=== PATIENT | male | born 1955 | race Caucasian/White ===

== ENCOUNTER 2017-09-07 20:51 | Inpatient (IN) | payer OTHER ==
[~2017-09-07] VITALS: Ht 177.8 cm; Wt 75.1 kg
--- NOTE | ~2017-09-07 | HC ---
[facility] [address] [place] [address] CONSULTATION Name: TY OWENS Room #: 448-P ADM IN M.R.#: [id number] Admission: 09/07/17 Attend Phys: Javi Mendez MD Discharge: Date of : 53 Report #: [id number] THIS REPORT FOR: //name// CC: Javi Mendez [facility] physician/PCP DATE OF SERVICE: 09/09/[address] Arnold, [facility], room 4481. HISTORY OF PRESENT ILLNESS: A 61-year-old white male admitted with hyperglycemia, dehydration, etc. The patient is an extremely poor historian. He states he has suffered from hypertension and approximately 20-year history of diabetes. He has been on some sort of oral medication for both illnesses, but has not taken any medication in the past several months. He has not been on any specific diet. He has not followed up with his physicians. He does not monitor blood sugar. He began to experience polyuria, polydipsia, mental confusion, etc. and was admitted with hyperglycemia. Otherwise, he is unable to give any prior pertinent past or family medical history whatsoever. He does not remember any of the names or doses, etc. of any of his prior medications. CURRENT MEDICATIONS: At the time of consultation include enoxaparin, amlodipine, ondansetron, insulin through various routes, flu vaccine, IV hydration and possibly other medication. PHYSICAL EXAMINATION: GENERAL: Well-nourished, well-developed 61-year-old white male, in no acute distress. Height and weight are as per chart. VITAL SIGNS: The patient is afebrile, heart rate 86 and regular, blood pressure 143/78. SKIN: Warm and moist with slightly decreased turgor. PERRL. NECK: Supple. CHEST: Clear. HEART: Regular rhythm without murmurs, rubs or gallops. ABDOMEN: Benign. EXTREMITIES: Show no edema, cyanosis or clubbing. Peripheral pulses 2+ and equal bilaterally. NEUROLOGIC: Grossly intact. The patient is alert and oriented. He is just unable to give any useful medical history. ASSESSMENT: 1. Diabetes mellitus, out of control. 2. 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 3. Chronic poor compliance. PLAN: [facility] [address] [place] [address] CONSULTATION Name: TY OWENS Room #: 448-P ADM IN M.R.#: [id number] Admission: 09/07/17 Attend Phys: Javi Mendez MD Discharge: Date of : 53 Report #: [id number] 1. Will evaluate prior control of hemoglobin A1c and fructosamine. 2. Continue vigorous hydration and utilize insulin to control sugar. Will also check C-peptide to see whether the patient is making endogenous insulin and would benefit from oral therapy. 3. Will place the patient on appropriate dietary restriction and educate in diet and whatever diabetes modalities are possible. The patient will also need full outpatient diet and diabetes education post-dismissal. 4. I have attempted to give the patient initial instruction in diabetes and the need for improved compliance in all areas to avoid preventable complications and maximize patient's safety. It is not clear whether the patient understands the implications of this education and these instructions. Thank you very much for this consultation. I will continue to attempt to educate and regulate patient's diabetes. <ELECTRONICALLY SIGNED> By: Doyle To MD 09/10/17 1125 1258 22 Doyle To MD /nt
[2017-09-07 20:52] VITALS: BP 145/81
[2017-09-07 21:06] LABS: ABSOLUTE NEUTROPHILS 11.1 thou/uL (1.4-8.2); BASOPHILS 0.4 % (0.0-2.0); EOSINOPHILS 0.3 % (0.0-3.0); HEMATOCRIT 37.4 % (42.0-52.0); HEMOGLOBIN 12.7 gm/dL (14.0-18.0); LYMPHOCYTES 10.2 % (24.0-44.0); MCHC 33.9 g/dL (28.0-37.0); MCV 88.3 fL (80.0-100.0); MONOCYTES 5.1 % (1.0-8.0); PLATELET COUNT 387 thou/uL (150-400); RBC 4.23 mil/uL (4.50-6.00); RDW 12.4 % (10.5-14.5); WBC 13.3 thou/uL (4.0-11.0)
[2017-09-07 21:19] LABS: CALCIUM 9.7 mg/dL (8.5-10.1); CREATININE 1.5 mg/dL (0.7-1.3); POTASSIUM 4.5 mmol/L (3.5-5.1)
[2017-09-07 21:21] LABS: ALBUMIN 3.2 g/dL (3.4-5.0); TOTAL BILIRUBIN 0.5 mg/dL (<0.1-1.0); TOTAL PROTEIN 8.3 g/dL (6.4-8.2)
[2017-09-07 21:23] LABS: URINE BILIRUBIN NEGATIVE (Negative); URINE BLOOD 1+ (Negative); URINE CLARITY CLEAR; URINE COLOR YELLOW; URINE GLUCOSE-RANDOM* 3+ (Negative); URINE KETONES 1+ (Negative); URINE LEUKOCYTES NEGATIVE (Negative); URINE NITRITE NEGATIVE (Negative); URINE PROTEIN (DIPSTICK) NEGATIVE (Negative); URINE UROBILINOGEN 0.2 E.U./dl (0.2-1.0)
[2017-09-07 21:27] LABS: BE(vivo) 5.8 mmol/L (-2 to +3); HCO3 31.3 mmol/L (22.0-26.0); PCO2 VENOUS 49.2 mmHg (41.0-51.0); PO2 VENOUS 26.7 mmHg (35.0-45.0)
[2017-09-07 21:31] LABS: BACTERIA >30 Many /HPF (None Seen); CASTS None Seen /LPF (None Seen); CRYSTALS None Seen /LPF (None Seen); MUCUS 4-6 Moderate strn/LPF (None Seen); SQUAMOUS 0-3 Few /LPF (0-3); URINE RBC 3-10 Few /HPF (0-2); WBC CLUMPS Moderate (None Seen)
[2017-09-07 21:49] VITALS: BP 145/81
[2017-09-07 21:59] VITALS: BP 175/96
[2017-09-07 22:19] VITALS: BP 179/106
[2017-09-08 00:10] VITALS: BP 136/87
[2017-09-08 04:30] VITALS: BP 110/59
[2017-09-08 05:35] LABS: HEMATOCRIT 33.2 % (42.0-52.0); HEMOGLOBIN 11.4 gm/dL (14.0-18.0); MCH 30.1 pg (26.0-34.0); MCHC 34.4 g/dL (28.0-37.0); MCV 87.5 fL (80.0-100.0); RBC 3.79 mil/uL (4.50-6.00); RDW 12.6 % (10.5-14.5); WBC 15.2 thou/uL (4.0-11.0)
[2017-09-08 05:58] LABS: ANION GAP 12 mmol/L (7-16); BUN 37 mg/dL (7-18); CALCIUM 8.6 mg/dL (8.5-10.1); CHLORIDE 99 mmol/L (98-107); CHOLESTEROL 54 mg/dL (<200); CO2 27 mmol/L (21-32); CREATININE 0.9 mg/dL (0.7-1.3); GLUCOSE 150 mg/dL (74-106); HDL CHOLESTEROL 15 mg/dL (>40); LDL CHOLESTEROL 14 mg/dL (<100); POTASSIUM 3.7 mmol/L (3.5-5.1); SODIUM 138 mmol/L (136-145); TC:HDL 3.6 Ratio (Not establshd); TRIGLYCERIDE 128 mg/dL (<150); VLDL 26 mg/dL (<40)
[2017-09-08 07:36] VITALS: BP 141/72
[2017-09-08 16:15] VITALS: BP 112/62
[2017-09-08 18:06] LABS: GLYCOHEMOGLOBIN (HGB A1C) 11.4 % (4.8-5.6)
[2017-09-08 19:37] VITALS: BP 139/85
[2017-09-09 00:50] VITALS: BP 126/64
[2017-09-09 06:25] LABS: CALCIUM 8.3 mg/dL (8.5-10.1); CREATININE 0.8 mg/dL (0.7-1.3); POTASSIUM 3.8 mmol/L (3.5-5.1)
[2017-09-09 06:29] VITALS: BP 137/73
[2017-09-09 06:35] LABS: ABSOLUTE NEUTROPHILS 9.6 thou/uL (1.4-8.2); BASOPHILS 0.6 % (0.0-2.0); EOSINOPHILS 0.7 % (0.0-3.0); HEMATOCRIT 32.6 % (42.0-52.0); HEMOGLOBIN 11.3 gm/dL (14.0-18.0); LYMPHOCYTES 11.8 % (24.0-44.0); MCH 30.2 pg (26.0-34.0); MCHC 34.5 g/dL (28.0-37.0); MCV 87.6 fL (80.0-100.0); MONOCYTES 7.2 % (1.0-8.0); PLATELET COUNT 308 thou/uL (150-400); POLYS 79.7 % (36.0-66.0); RBC 3.72 mil/uL (4.50-6.00); RDW 12.5 % (10.5-14.5)
[2017-09-09 08:09] VITALS: BP 143/78
[2017-09-09 16:33] VITALS: BP 128/66
[2017-09-09 17:08] LABS: GLYCOHEMOGLOBIN (HGB A1C) 11.7 % (4.8-5.6)
[2017-09-09 20:06] VITALS: BP 143/76
[2017-09-10 04:00] VITALS: BP 143/78
[2017-09-10 08:00] VITALS: BP 155/94
[2017-09-10 16:00] VITALS: BP 116/68
[2017-09-10 18:50] VITALS: BP 141/80
[2017-09-11 05:15] VITALS: BP 147/91
[2017-09-11 08:47] VITALS: BP 114/82
[2017-09-11 16:00] VITALS: BP 122/74
[2017-09-11 19:36] VITALS: BP 111/63
[2017-09-12 05:34] VITALS: BP 134/77
[2017-09-12 08:00] VITALS: BP 137/61
[2017-09-12] MEDS ORDERED: CIPRO500 MG PO (14:03)
[2017-09-12] MEDS ORDERED: AMLODIPINE BESY10 MG PO (14:03)
[2017-09-12] MEDS ORDERED: ACCUPRIL40 MG PO (14:04)
[2017-09-12] MEDS ORDERED: GLUCOPHAGE1000 MG PO (14:06)
[2017-09-12] MEDS ORDERED: AMARYL4 MG PO (14:13)
[2017-09-12] MEDS ORDERED: TOUJEO SOL300 UNIT/1 SUBQ (14:16)
[2017-09-12] MEDS ORDERED: 1ST TIER UNILE1 EAC1 SUBQ (14:16)
[2017-09-12 14:18] VITALS: BP 134/77
== END 2017-09-12 17:45 | disposition home or self-care (01) | DRG 638 ==
LOC: ER 20:51 → 4S 21:41 → EROBS 21:41 → 4S 22:03 → ENTRNSPT 09-12 17:11 → 4S 09-12 17:45
PROVIDERS: Hospitalist; Nurse Practitioner Family; Physician Assistant
DX: E11.00 Type 2 diabetes mellitus with hyperosmolarity without nonketotic hyperglycemic-hyperosmolar coma (NKHHC) (principal); N17.9 Acute kidney failure, unspecified; E11.65 Type 2 diabetes mellitus with hyperglycemia; I10 Essential (primary) hypertension; E78.5 Hyperlipidemia, unspecified; E11.40 Type 2 diabetes mellitus with diabetic neuropathy, unspecified; E66.09 Other obesity due to excess calories; E86.0 Dehydration; Z91.14 Patient's other noncompliance with medication regimen; Z90.49 Acquired absence of other specified parts of digestive tract; Z68.23 Body mass index [BMI] 23.0-23.9, adult
CPT/HCPCS: 10195

== ENCOUNTER 2017-11-22 08:55 | Inpatient (IN) | payer OTHER ==
[2017-11-22] VITALS (23 sets, daily range): BP systolic 52–164; BP diastolic 40–85
[~2017-11-22] VITALS: Ht 175.3 cm; Wt 85.3 kg
--- NOTE | ~2017-11-22 | EKG ---
[address] [place] [address] ELECTROCARDIOGRAM REPORT Name: TY OWENS Room #: 241-P ADM IN M.R.#: [id number] Admission: 11/22/17 Attend Phys: Javi Mendez MD Discharge: Date of : 53 Report #: [id number] THIS REPORT FOR: //name// [facility] ED Test Date: 2017-11-22 Test Time: 09:18:28 Pat Name: TY OWENS Department: Room: Gender: M Medical Psychotherapist: : 1955 Requested By: Raoul Mo Order Number: [id number] MD: Erick Amaya Measurements Intervals [place] Rate: 107 P: 16 CT: 170 QRS: -48 QRSD: 118 T: 27 QT: 336 QTc: 449 Interpretive Statements Sinus tachycardia Left anterior fascicular block Probable anteroseptal infarct No previous ECG available for comparison Electronically Signed On 11-23-2017 8:38:39 CDT by Erick Amaya [email or web address] <ELECTRONICALLY SIGNED> By: Erick Amaya MD, [facility] 11/23/17 0838 7 7 Erick Amaya MD, FACC /EPI
--- NOTE | ~2017-11-22 | HC ---
[facility] [address] [place] [address] CONSULTATION Name: TY OWENS Room #: 204-P ADM IN M.R.#: [id number] Admission: 11/22/17 Attend Phys: Javi Mendez MD Discharge: Date of : 53 Report #: [id number] THIS REPORT FOR: //name// CC: Javi CUENCA DATE OF SERVICE: 11/23/2017 NEPHROLOGY CONSULTATION ATTENDING PHYSICIAN: Dr. Mendez. REASON FOR CONSULTATION: Acute kidney injury. HISTORY OF PRESENT ILLNESS: This 62-year-old patient with no contacts is seen comatose on the ventilator post-code in the ICU. Information is limited, mostly taken from the electronic medical record, nursing staff and the physician consulting and attending staff. The patient has known diabetes, was admitted at this hospital with hyperglycemia and volume depletion 3 months ago. At that time, noted to have a limited resource and decreased ability to get his hypoglycemic medications. At this time, he presented yesterday initially with weakness, fatigue and loss of energy, then dry heaves, was felt to be volume depleted, had lactic acidosis, hyperglycemia, some metabolic acidosis and a serum creatinine of 2.7. Initially treated on the floor. Eventually found to have gram-negative sepsis, underwent a cardiorespiratory arrest, reportedly associated with ventricular tachycardia and was resuscitated, intubated and placed on pressors, ICU overnight. Now the pressors have been weaned, but the patient is still comatose and sedated. PAST MEDICAL HISTORY: He has got a history of hypertension, diabetes, peripheral neuropathy and cataracts. SOCIAL HISTORY: Apparently, he never has smoked. REVIEW OF SYSTEMS: Cannot be taken. According to his initial evaluation, he was having chills, weakness, fever and poor appetite at the time of admission, only symptoms reported. PHYSICAL EXAMINATION: GENERAL: This is a middle-aged gentleman, again comatose, somewhat arousable at times, on the ventilator in the ICU and off pressors. SKIN: Warm and dry. SKELETAL: Shows him to be well developed, well nourished and non-obese. HEENT: Extraocular movements cannot be tested. Pupils are reactive. No scleral icterus. Hearing and vision cannot be tested. Endotracheal tube in place. [facility] [address] [place] [address] CONSULTATION Name: YT OWENS Room #: 204-P ADM IN M.R.#: [id number] Admission: 11/22/17 Attend Phys: Javi Mendez MD Discharge: Date of : 53 Report #: [id number] NECK: Supple. CHEST: Shows coarse breath sounds with rhonchi and occasional wheeze. HEART: Regular. ABDOMEN: Soft and nontender. Bowel sounds diminished. EXTREMITIES: Show no peripheral edema. The feet are warm and he moves all extremities. LABORATORY DATA: Hemoglobin is 9.6, white count is 14.8. He initially had 11%, bands, 1 metamyelocyte and platelets of 83,000. Sodium 136, potassium 3.8, chloride 103, bicarbonate 22, BUN 58 and creatinine 2.5. ASSESSMENT AND PLAN: 1. Acute kidney injury. Creatinine up, volume depletion, gram-negative sepsis, likely urinary tract source. Intra-abdominal source is being investigated. CT of the abdomen is ordered. Supportive therapy at the current time. Antibiotics per ID. IV fluids to continue support. Creatinine has improved down to 2.5 and he is making some urine. We will follow closely. 2. Gram-negative sepsis with septic syndrome. 3. Status post cardiorespiratory arrest. 4. Diabetes mellitus with poor control and peripheral neuropathy. <ELECTRONICALLY SIGNED> By: Kaleb Mosley MD 12/05/17 1055 0905 1203 Kaleb Mosley MD /nt
--- NOTE | ~2017-11-22 | HC ---
[facility] [address] [place] [address] CONSULTATION Name: TY OWENS Room #: 241-P ADM IN M.R.#: [id number] Admission: 11/22/17 Attend Phys: Javi Mendez MD Discharge: Date of : 53 Report #: [id number] THIS REPORT FOR: //name// CC: Ector Enamorado DATE OF SERVICE: 11/23/2017 GASTROENTEROLOGY CONSULTATION Patient of Dr. Mendez and Dr. Summer Enamorado. INDICATION FOR CONSULTATION: The patient apparently developed a cardiac arrhythmia and code blue through the night, was coded and transferred down to the Intensive Care Unit. He was found to have Gram-negative sepsis with Gram-negative rods growing in his blood. Apparently, during the course of all of the events through the night, an NG tube was inserted, some bright red blood was seen coming per NG tube, but this morning, it is a light brown color such as coffee grounds perhaps and it clears rapidly with one flush of 50 mL through the NG tube. His hemoglobin is stable at this point and I do not think that active GI bleeding is a major concern right now. PAST MEDICAL HISTORY: Significant for diabetes mellitus, hypertension, hyperlipidemia. He had a recent viral illness and was admitted to the hospital for increasing weakness and fatigue and poor appetite. He has had an elevated D-dimer with a negative VQ scan and venous Dopplers of the lower extremities, acute renal insufficiency with a creatinine of 3 this admission. He is also noted to have an elevated AST, which is probably from shock liver. Currently, he is sedated and on the vent and unresponsive to verbal or physical stimuli. PAST SURGICAL HISTORY: Per chart is significant for an appendectomy and surgery on his right hand. ALLERGIES: No known drug allergies. MEDICATIONS: Prior to admission include amlodipine, glimepiride, metformin. SOCIAL HISTORY: The patient does not smoke. He did drink alcohol in the past. FAMILY HISTORY: Not obtainable. REVIEW OF SYSTEMS: Not obtainable. [facility] [address] [place] [address] CONSULTATION Name: TY OWENS Room #: 241-P ADM IN M.R.#: [id number] Admission: 11/22/17 Attend Phys: Javi Mendez MD Discharge: Date of : 53 Report #: [id number] PHYSICAL EXAMINATION: GENERAL: Reveals a well-developed, well-nourished 62-year-old white male who is sedated on the ventilator, in the ICU at this time and underwent code blue situation through the middle of the night with intermittent V-tach. HEENT: He appears normocephalic and atraumatic and anicteric. He is intubated on the vent and he has an OG tube in. HEART: Rate and rhythm are regular, appears to be in sinus rhythm at this time on the monitor. LUNGS: Clear on the left. On the right, he has some coarse anterior and lateral breath sounds. ABDOMEN: Mildly distended. Bowel sounds are present, but decreased. There is no palpable organomegaly or mass. There is no tenderness, rebound or guarding. EXTREMITIES: Warm and dry with no peripheral cyanosis or clubbing. There is 2+ pitting edema of the lower extremities and feet. SIGNIFICANT LABORATORY DATA: Showed procalcitonin of 77, AST is in the 90s. Troponin 0.08. Hemoglobin 9.8, platelets are 83,000. I do not have an occult of stool yet. White count was 20,000. Urinalysis had positive leukocyte esterase, but negative nitrites. The patient is currently in the CT scanner being scanned. On plain films of the abdomen, he had moderate stool throughout the colon. There are several calcified stones over the line of right kidney, but not in the ureters. There was increased density in the medial right base suggestive of moderate atelectasis. Blood cultures are positive x 2 for Gram-negative rods. Urine culture is pending. Creatinine was up to 3 through the night and it is down to 2.5 this morning. Lactate is 3.5 at this time, it was as high as 12.7 at around 11:00 last night during the code. IMPRESSION: 1. Febrile illness with Gram-negative sepsis, currently off pressors. The source of the Gram-negative sepsis is not clear. The patient's procalcitonin level is 77. 2. Status post code blue through the night during which he was found to be in and out of V-tach. This morning, he is in normal sinus rhythm. Troponin is 0.08. 3. Diabetes mellitus. 4. Hypertension. 5. Hyperlipidemia. 6. Recent viral illness. 7. Elevated D-dimer with negative VQ scan and negative venous Dopplers of the lower extremities. 8. Normocytic normochromic anemia, coffee ground emesis and some bright red blood per NG last night. Hemoglobin is 9.6. 9. Acute renal insufficiency, creatinine was up to 3 through the night, now down to 2.5. 10. Acute respiratory failure. The patient is sedated and on vent with an FiO2 [facility] [address] [place] [address] CONSULTATION Name: TY OWENS Room #: 241-P ADM IN M.R.#: [id number] Admission: 11/22/17 Attend Phys: Javi Mendez MD Discharge: Date of : 53 Report #: [id number] of 50%, 5 of PEEP. He is tachypneic. He is sedated. 11. Metabolic acidosis with elevated lactate level. The source of his Gram-negative sepsis is not clear, but is most likely the etiology of his acidosis. There are no acute abdominal findings on exam. 12. Thrombocytopenia. Platelets 83,000. 13. Elevated AST, likely secondary to shock liver as his pressure was low through the night during the code. My recommendations are as follows: I have irrigated the NG tube clear with one syringe of water flush. There is some brownish material in the NG tube, but no red blood is seen and there is very small output. I agree with a CT scan of the abdomen and pelvis today and I would consider an EGD and colonoscopy at some point if he has not had a colonoscopy done recently. Physical exam was fairly unremarkable except for some coarse breath sounds over the right anterior and lateral lung. I would recommend continuing the Protonix drip for now. We will monitor his H and H closely. I agree with the current vancomycin and Zosyn regimen. Blood sugars are coming under control. I would recommend neurology consult if the patient is not responsive when the sedation is removed. Thank you very much once again for allowing me to participate in his care. <ELECTRONICALLY SIGNED> By: April Samano DO 11/23/17 2039 1026 1833 April Samano DO /nt
--- NOTE | ~2017-11-22 | EKG ---
[address] [address] ELECTROCARDIOGRAM REPORT Name: TY OWENS Room #: 241-P ADM IN M.R.#: [id number] Admission: 11/22/17 Attend Phys: Javi Mendez MD Discharge: Date of : 53 Report #: [id number] THIS REPORT FOR: //name// [facility] Test Date: 2017-11-23 Test Time: 06:57:54 Pat Name: TY OWENS Department: Room: 241 P Gender: M Utilization Review Nurse: OMERO : 1955 Requested By: China Landon Order Number: [id number] MD: Erick Amaya Measurements Intervals [place] Rate: 103 P: 17 NM: 156 QRS: -48 QRSD: 108 T: 29 QT: 331 QTc: 434 Interpretive Statements Sinus tachycardia Left anterior fascicular block Anteroseptal infarct No previous ECG available for comparison Electronically Signed On 11-23-2017 8:55:17 CDT by Erick Amaya [email or web address] <ELECTRONICALLY SIGNED> By: Erick Amaya MD, [facility] 11/23/17 0855 0657 06 Erick Amaya MD, FACC /EPI
--- NOTE | ~2017-11-22 | 2DMMODE ---
[facility] [address] [place] [address] 2 D/M-MODE ECHOCARDIOGRAM Name: TY OWENS Room #: 241-P ADM IN M.R.#: [id number] Admission: 11/22/17 Attend Phys: Javi Mendez MD Discharge: Date of : 53 Date of Service: 11/23/17 1000 Report #: [id number] THIS REPORT FOR: //name// APPROVED REPORT Study performed: 11/23/2017 08:36:10 EXAM: Comprehensive 2D, Doppler, and color-flow Echocardiogram Patient Location: ICU Room #: 241 Status: routine BSA: 1.98 HR: 102 bpm BP: 112/67 mmHg Other Information Study Quality: Adequate Indications Diabetes Hypertension/HDD S^P Code Blue, Respiratory failure 2D Dimensions RVDd: 40.74 mm LVEF(%): 75.31 (>50%) IVSd: 14.31 (7-11mm) LVOT Diam: 22.19 (18-24mm) LVDd: 43.86 mm PWd: 14.31 (7-11mm) Ascending Ao: 29.67 (22-36mm) LVDs: 24.62 (25-40mm) Aortic Root: 35.25 mm IVC: 25.00 mm Miranda's LVEF: 75.31 % Volumes Left Atrial Volume (Systole) Single Plane 4CH: 79.39 mL Single Plane 2CH: 72.31 mL LA ESV Index: 42.00 mL/m2 Aortic Valve AoV Peak Jesus.: 1.59 m/s AO Peak Gr.: 10.07 mmHg LVOT Max P.60 mmHg LVOT Max V: 1.18 m/s KATHE Vmax: 2.88 cm2 Mitral Valve E/A Ratio: 1.1 [facility] [place] [address] 2 D/M-MODE ECHOCARDIOGRAM Name: ROMANTY Room #: 241-P [facility] IN .R.#: [id number] Admission: 11/22/17 Attend Phys: Javi Mendez MD Discharge: Date of : 53 Date of Service: 11/23/17 1000 Report #: [id number] MV Decel. Time: 170.08 ms MV E Max Jesus.: 1.04 m/s MV A Jesus.: 0.93 m/s MV PHT: 49.32 ms IVRT: 69.20 ms Pulmonary Valve PV Peak Jesus.: 0.95 m/s PV Peak Gr.: 3.63 mmHg Pulmonary Vein P Vein S: 0.57 m/s P Vein A: 0.21 m/s P Vein D: 0.36 m/s P Vein A Dur.: 110.7 msec P Vein S/D Ratio: 1.58 Tricuspid Valve TR Peak Jesus.: 2.53 m/s TR Peak Gr.: 25.57 mmHg PA Pressure: 40.00 mmHg Left Ventricle The left ventricle is normal size. Mild to moderate concentric left ventricular hypertrophy. Left ventricular systolic function is hyperdynamic. LVEF is 65-70%. The diastolic function is abnormal. Right Ventricle The right ventricle is normal size. The right ventricular systolic function is normal. Atria Left atrium is dilated. Right atrium is dilated. Aortic Valve Aortic valve is calcified, trileaflet. No aortic regurgitation is present. There is no aortic valvular stenosis. Mitral Valve The mitral valve is normal in structure. Trace mitral regurgitation. No evidence of mitral valve stenosis. Tricuspid Valve The tricuspid valve is normal in structure. There is trace tricuspid regurgitation. Estimated PAP 40 mmHg. There is mild-moderate pulmonary hypertension. Pulmonic Valve [address] [address] 2 D/M-MODE ECHOCARDIOGRAM Name: TY OWENS Room #: 241-P [facility] IN M.R.#: [id number] Admission: 11/22/17 Attend Phys: Javi Mendez MD Discharge: Date of : 53 Date of Service: 11/23/17 [facility] Report #: [id number] The pulmonary valve is normal in structure. Trace pulmonic regurgitation. Great Vessels The aortic root is normal in size. The inferior vena cava is dilated with no inspiratory collapse. Pericardium There is no pericardial effusion. <Conclusion> Left ventricular systolic function is hyperdynamic. Mild to moderate concentric left ventricular hypertrophy. LVEF is 65-70%. Both atria are dilated. Aortic valve is calcified, trileaflet. No aortic regurgitation or stenosis The mitral valve is normal in structure. Trace mitral regurgitation. There is trace tricuspid regurgitation. Estimated pulmonary artery pressure of 40 mmHg. There is no pericardial effusion. <ELECTRONICALLY SIGNED> By: Erick Amaya MD, FACC 11/23/17 1000 1000 1000 Erick Amaya MD, FACC /INF
--- NOTE | ~2017-11-22 | EKG ---
[address] [address] ELECTROCARDIOGRAM REPORT Name: TY OWENS Room #: 204-P ADM IN M.R.#: [id number] Admission: 11/22/17 Attend Phys: Javi Mendez MD Discharge: Date of : 53 Report #: [id number] THIS REPORT FOR: //name// [facility] Test Date: 2017-12-02 Test Time: 14:43:06 Pat Name: TY OWENS Department: Room: 246 P Gender: M Cat And Dog Bather: Rose Mary COMBS : 1955 Requested By: Javi Mendez Order Number: [id number] MD: Erick Amaya Measurements Intervals [place] Rate: 91 P: 5 TN: 149 QRS: -33 QRSD: 109 T: 37 QT: 367 QTc: 452 Interpretive Statements Sinus rhythm Left axis deviation Poor R wave progression Compared to ECG 11/23/2017 06:57:54 No significant change was found Electronically Signed On 12-05-2017 7:46:48 CDT by Erick Amaya [email or web address] <ELECTRONICALLY SIGNED> By: Erick Amaya MD, [facility] 12/05/17 0746 144 144 Erick Amaya MD, [facility] /EPI
--- NOTE | ~2017-11-22 | HC ---
[facility] [address] [place] [address] CONSULTATION Name: TY OWENS Room #: 241-P ADM IN M.R.#: [id number] Admission: 11/22/17 Attend Phys: Javi Mendez MD Discharge: Date of : 53 Report #: [id number] THIS REPORT FOR: //name// CC: Javi CUENCA CARDIOLOGY CONSULTATION HISTORY OF PRESENT ILLNESS: The patient is a 62-year-old male who apparently, from review of the records here, is status post code blue tonight. He was on Med/Surg tele upstairs and apparently, there was some hypotension and at least, I do not have documentation of what the rhythm was. CPR was initiated. There was some witness of nonsustained VT or tachycardia in the 200-250 range. He spontaneously converted this. He was not defibrillated. Medications and some CPR were performed. He was admitted allegedly with sepsis, hypotension and dehydration. It looks like he has had multiple admissions for diabetic ketoacidosis. His lactate level is 8. I do not have much in the way of any cardiac history in the old records, but certainly risk factors in light of the poorly controlled diabetes, [id number] renal failure and acidosis. Current pH is 7.0 with a lactate level of 8. There is a bandemia. H and H are 11.1 and 31.9, 83% segs and 11% bands. Creatinine 2.7, potassium 4.6. Troponin 0.04. Currently, sinus tachycardia with Levophed for pressor support. PAST MEDICAL HISTORY: History of diabetes, recurrent DKA, acidosis, sepsis, dehydration and urinary tract infections, perhaps a component of noncompliance. HOME MEDICATIONS: Amlodipine 10, metformin 500 b.i.d., glimepiride 2, Cipro, quinapril 40, insulin and lancets. SOCIAL HISTORY: Never smoker. History of alcohol. Apparently, he does see a primary care physician. He lives alone. FAMILY HISTORY: Unknown. REVIEW OF SYSTEMS: Not obtainable. PHYSICAL EXAMINATION: GENERAL: He is not responsive. He is intubated. He is on propofol and Levophed drip. VITAL SIGNS: Pulse 130s, blood pressure 140/80s. HEENT: Eyes reveal no xanthelasmas. Pharynx, slightly dry mucous membranes. NECK: Shows preserved upstrokes. No evidence of significant JVD. LUNGS: Clear anteriorly. CARDIAC EXAMINATION: Tachycardic, S1, S2. ABDOMEN: Slightly protuberant. Bowel sounds are noted. EXTREMITIES: Reveal trace nonpitting edema. NEUROLOGIC: Not obtainable. He is sedated and intubated. [address] [address] CONSULTATION Name: TY OWENS Room #: 241-P [facility] IN M.R.#: [id number] Admission: 11/22/17 Attend Phys: Javi Mendez MD Discharge: Date of : 53 Report #: [id number] SKIN: Appears to be warm and dry. Does have some geronimo facial complexion. No skin ulcers. ASSESSMENT: 1. Status post code blue with CPR. 2. Apparent wide complex tachycardia, possible ventricular tachycardia, currently in sinus tachycardia. 3. Sepsis with lactate and resultant lactic acidosis. 4. Diabetes type 1, poorly controlled. 5. Acute renal failure with relative hypovolemia. 6. Thrombocytopenia. RECOMMENDATIONS AND PLAN: The patient currently on some pressor support, monitored and intubated on the sepsis. Infectious Disease has been consulted. Antibiotics. It does not appear this was a primary cardiac event, did not induce by electrolyte abnormality, although certainly acidosis and lactic acidosis appears to be evident here. So other considerations of lactate elevation and possible ischemic other metabolic etiologies A.m. lab. Continue pressor support. We will obtain echo Doppler and EKG in the morning and troponin in the morning, although it does not appear that this is coronary ischemic issue. We will follow with Thank you for allowing us to assist in the care of this patient. <ELECTRONICALLY SIGNED> By: Kaleb Herrera MD, FACC 11/25/17 0932 2203 0254 Kaleb Herrera MD, FACC /nt
--- NOTE | ~2017-11-22 | EKG ---
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 hernandez : 1955 Requested By: Kaleb Herrera Order Number: [id number] MD: Erick Amaya Measurements Intervals [place] Rate: 93 P: 5 OK: 149 QRS: -32 QRSD: 108 T: 19 QT: 392 QTc: 488 Interpretive Statements Sinus rhythm Occasional premature ventricular complexes Left axis deviation Compared to ECG 11/23/2017 06:57:54 premature ventricular complexes are now present Electronically Signed On 12-05-2017 7:50:16 CDT by Erick Amaya [email or web address] <ELECTRONICALLY SIGNED> By: Erick Amaya MD, [facility] 12/05/17 0750 0550 0550 Erick Amaya MD, [facility] /EPI
--- NOTE | ~2017-11-22 | HC ---
[facility] [address] [place] [address] CONSULTATION Name: TY OWENS Room #: 241-P ADM IN M.R.#: [id number] Admission: 11/22/17 Attend Phys: Javi Mendez MD Discharge: Date of : 53 Report #: [id number] THIS REPORT FOR: //name// CC: Javi CUENCA REASON FOR CONSULTATION: I was asked to evaluate concerning septic shock. HISTORY OF PRESENT ILLNESS: The patient was a 62-year-old, hospitalized here in August for Enterobacter urinary tract infection. He has underlying hypertension, diabetes. He returns now with generalized weakness over the last 2 days. Has had some upper respiratory tract congestion and nonproductive cough. He has had some nausea and emesis, but mostly dry heaves. He has been off his diabetic treatment for several days. He was seen in the Emergency Room where he complained of mild right lower quadrant pain. He had evidence of pyuria and bacteriuria. Lactate was elevated at 7.5, creatinine was up to 2.7. White count of 20,000 with left shift. Blood and urine cultures were obtained. Chest x-ray: Cardiomegaly without failure and abdominal x-ray showed nonobstructive right renal calculus. He did have some atelectasis in the right lung base. He was hyperglycemic and had some ketones in his urine. He was given IV fluids, started on ceftriaxone and admitted for suspected urinary tract infection. When he got to the med/surg floor, had a cardiopulmonary arrest, now is intubated. NG tube was placed and now has had some transient bloody return. He has had no diarrhea. Moderate tracheal secretions. No gross aspiration identified. ALLERGIES: None known. MEDICATIONS: As noted on his MAR including vancomycin and Zosyn started last evening. PAST MEDICAL HISTORY: Diabetes, hypertension, hyperlipidemia, peripheral neuropathy, cataracts, right hand surgery, appendectomy. FAMILY HISTORY: Noncontributory. SOCIAL HISTORY: Nonsmoker, no significant alcohol intake. REVIEW OF SYSTEMS: Noted no previous cardiac issues or chest pain. No dysuria. No rash or decubitus. No seizure reports. PHYSICAL EXAMINATION: VITAL SIGNS: Temperature is 101.8 axillary. Blood pressure now is stable, off vasopressors. He did drop down in the 50s last evening. He is on FiO2 of 50%. GENERAL: He is sedated. SKIN: Unremarkable. 1+ peripheral edema in lower extremities. HEENT: Unremarkable. OG with brownish red output. Endotracheal tube in place. [facility] [address] [place] [address] CONSULTATION Name: TY OWENS Room #: 241-P [facility] IN M.R.#: [id number] Admission: 11/22/17 Attend Phys: Javi Mendez MD Discharge: Date of : 53 Report #: [id number] NECK: Supple. LUNGS: Coarse posteriorly. HEART: Regular, without murmur. ABDOMEN: Mild distention, no focal tenderness or mass appreciated. No hepatosplenomegaly identified. GENITOURINARY: External genitalia unremarkable with indwelling Borrego catheter. LABORATORY STUDIES: Sodium 136, potassium 3.8. Bicarbonate 22, on a bicarbonate drip, last evening his bicarbonate was 13. Creatinine 2.5, with a baseline of 0.8. AST 94, lipase 45, bilirubin 0.4, alkaline phosphatase 95, ALT 60, albumin at 2.6. Lactic acid peaked at 12.7 post-code, now 3.5. Troponin 0.08. Hemoglobin 9.6, down from 11.3 last month. White count 14.8, platelet count 83,000, 93% segs and 4% bands. TSH 4. Procalcitonin 77. Urinalysis, moderate wbc's, moderate bacteria. ABGs on 100% FiO2 showed a pO2 of 371, pCO2 of 27, pH 7.5, lactate 3.2, bicarbonate of 20. Blood cultures, gram-negative bacilli from both cultures obtained yesterday morning. Urine culture is pending. Sputum culture is pending. Previous culture from 09/08 shows Enterobacter from the urine, which was sensitive to Zosyn. Chest x-ray today shows vascular congestion and pulmonary edema, increased right pleural effusion and atelectasis. IMPRESSION: A 62-year-old diabetic with multisystem failure post-code, respiratory failure, acute renal failure with possible gastrointestinal bleed, suspect upper tract with underlying Gram-negative bacteremia, suspecting urinary tract versus intestinal tract. His liver function tests are reasonable. Makes biliary tract less likely. RECOMMENDATIONS: We will continue combination of aerobic and anaerobic gram-negative coverage. Image his abdomen and pelvis. I have discussed with Nursing Services as well as GI Service. Further recommendations pending imaging studies and identification of the infecting organisms. Control blood glucose, continue hydration and vasopressors as needed to control shock. <ELECTRONICALLY SIGNED> By: Terrence Eason MD 11/23/17 1403 0846 1101 Terrence Eason MD /nt
--- NOTE | ~2017-11-22 | EKG ---
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
[~2017-11-22 08:55] MED LIST: 1ST TIER UNILE1 EAC1 SUBQ; ACCUPRIL40 MG PO; AMARYL4 MG PO; AMLODIPINE BESY10 MG PO; CIPRO500 MG PO; GLUCOPHAGE1000 MG PO; TOUJEO SOL300 UNIT/1 SUBQ
[2017-11-22 10:06] LABS: HEMATOCRIT 31.9 % (42.0-52.0); HEMOGLOBIN 11.1 gm/dL (14.0-18.0); MCH 30.7 pg (26.0-34.0); MCHC 34.7 g/dL (28.0-37.0); MCV 88.5 fL (80.0-100.0); PLATELET COUNT 107 thou/uL (150-400); RDW 13.1 % (10.5-14.5)
[2017-11-22 10:14] LABS: ANION GAP 17 mmol/L (7-16); BUN 57 mg/dL (7-18); CALCIUM 10.8 mg/dL (8.5-10.1); CHLORIDE 95 mmol/L (98-107); CO2 19 mmol/L (21-32); CREATININE 2.7 mg/dL (0.7-1.3); GLUCOSE 355 mg/dL (74-106); POTASSIUM 4.6 mmol/L (3.5-5.1); SODIUM 131 mmol/L (136-145)
[2017-11-22 10:23] LABS: ALBUMIN 3.3 g/dL (3.4-5.0); LIPASE 41 U/L (73-393); SGOT 39 U/L (15-37); SGPT 32 U/L (30-65); TOTAL BILIRUBIN 0.7 mg/dL (<0.1-1.0); TOTAL PROTEIN 7.7 g/dL (6.4-8.2); TROPONIN-I < 0.04 ng/mL (<0.06)
[2017-11-22 10:24] LABS: ABSOLUTE NEUTROPHILS 18.8 thou/uL (1.4-8.2)
[2017-11-22 10:25] LABS: ANISOCYTOSIS SLIGHT
[2017-11-22 10:37] LABS: URINE BILIRUBIN NEGATIVE (Negative); URINE BLOOD 2+ (Negative); URINE CLARITY CLOUDY; URINE COLOR YELLOW; URINE GLUCOSE-RANDOM* 2+ (Negative); URINE KETONES TRACE (Negative); URINE LEUKOCYTES-REFLEX 1+ (Negative); URINE NITRITE-REFLEX NEGATIVE (Negative); URINE PROTEIN (DIPSTICK) 2+ (Negative); URINE SPECIFIC GRAVITY 1.025 (1.005-1.035); URINE UROBILINOGEN 0.2 E.U./dl (0.2-1.0)
[2017-11-22 10:43] LABS: BE(vivo) -5.3 mmol/L (-2 to +3); HCO3 19.1 mmol/L (22.0-26.0); PCO2 VENOUS 33.6 mmHg (41.0-51.0); PO2 VENOUS 46.8 mmHg (35.0-45.0)
[2017-11-22 10:48] LABS: FINE GRANULAR CASTS 0-3 Few /LPF (None Seen); SQUAMOUS None Seen /LPF (0-3)
[2017-11-22 10:49] LABS: CRYSTALS None Seen /LPF (None Seen); MUCUS 4-6 Moderate strn/LPF (None Seen)
[2017-11-22 10:50] LABS: URINE RBC 3-10 Few /HPF (0-2)
[2017-11-22 13:05] LABS: TSH 4.022 uIU/mL (0.358-3.740)
[2017-11-22 21:09] LABS: HEMATOCRIT 27.4 % (42.0-52.0); MCH 30.5 pg (26.0-34.0); MCHC 32.5 g/dL (28.0-37.0); RBC 2.92 mil/uL (4.50-6.00); RDW 13.7 % (10.5-14.5); WBC 15.1 thou/uL (4.0-11.0)
[2017-11-22 21:12] LABS: HCO3 14.1 mmol/L (22.0-26.0); PCO2 41.4 mmHg (35.0-45.0); PO2 272.6 mmHg (80.0-100.0); sO2 99.4 % (92.0-98.0)
[2017-11-22 21:17] LABS: HEMOGLOBIN 8.9 gm/dL (14.0-18.0); MCV 93.7 fL (80.0-100.0)
[2017-11-22 21:21] LABS: BE(vivo) -19.2 mmol/L (-2 to +3); HCO3 10.9 mmol/L (22.0-26.0); PCO2 43.8 mmHg (35.0-45.0); PO2 89.2 mmHg (80.0-100.0); pH 7.015 (7.360-7.450); sO2 91.7 % (92.0-98.0)
[2017-11-22 21:24] LABS: APTT 40.1 Seconds (24.5-32.8); INR 1.3; PROTIME 13.2 Seconds (9.3-11.4)
[2017-11-22 21:29] LABS: FIBRINOGEN 701.2 mg/dL (210-360)
[2017-11-22 21:31] LABS: ALBUMIN 2.6 g/dL (3.4-5.0); ANION GAP 21 mmol/L (7-16); BUN 59 mg/dL (7-18); CHLORIDE 101 mmol/L (98-107); CO2 13 mmol/L (21-32); GLUCOSE 276 mg/dL (74-106); SGOT 94 U/L (15-37); SGPT 60 U/L (30-65); SODIUM 135 mmol/L (136-145); TOTAL BILIRUBIN 0.4 mg/dL (<0.1-1.0); TOTAL PROTEIN 6.5 g/dL (6.4-8.2); TROPONIN-I < 0.04 ng/mL (<0.06)
[2017-11-22 21:32] LABS: CALCIUM 8.7 mg/dL (8.5-10.1); POTASSIUM 3.6 mmol/L (3.5-5.1)
[2017-11-22 21:47] LABS: ABSOLUTE NEUTROPHILS 12.7 thou/uL (1.4-8.2); ANISOCYTOSIS SLIGHT; METAMYELOCYTES 1 %; PLATELET COUNT 86 thou/uL (150-400)
[2017-11-22 22:12] LABS: AMYLASE 25 U/L (25-115); LIPASE 45 U/L (73-393)
[2017-11-22 22:32] LABS: BE(vivo) -11.3 mmol/L (-2 to +3); HCO3 13.7 mmol/L (22.0-26.0); PCO2 27.9 mmHg (35.0-45.0); PO2 145.1 mmHg (80.0-100.0); pH 7.308 (7.360-7.450); sO2 98.7 % (92.0-98.0)
[2017-11-23] VITALS (80 sets, daily range): BP systolic 70–128; BP diastolic 50–80
[2017-11-23 01:11] LABS: GLYCOHEMOGLOBIN (HGB A1C) 7.7 % (4.8-5.6)
[2017-11-23 01:40] LABS: HEMATOCRIT 27.1 % (42.0-52.0); HEMOGLOBIN 9.3 gm/dL (14.0-18.0); MCH 30.4 pg (26.0-34.0)
[2017-11-23 01:42] LABS: MCHC 34.2 g/dL (28.0-37.0); MCV 88.8 fL (80.0-100.0); RBC 3.05 mil/uL (4.50-6.00); RDW 13.2 % (10.5-14.5); WBC 14.8 thou/uL (4.0-11.0)
[2017-11-23 01:50] LABS: CALCIUM 8.3 mg/dL (8.5-10.1); CREATININE 2.7 mg/dL (0.7-1.3); POTASSIUM 4.1 mmol/L (3.5-5.1)
[2017-11-23 04:54] LABS: HEMATOCRIT 27.5 % (42.0-52.0); HEMOGLOBIN 9.6 gm/dL (14.0-18.0); MCH 30.7 pg (26.0-34.0); MCHC 34.9 g/dL (28.0-37.0); MCV 88.2 fL (80.0-100.0); PLATELET COUNT 83 thou/uL (150-400); RBC 3.12 mil/uL (4.50-6.00); RDW 13.1 % (10.5-14.5); WBC 14.8 thou/uL (4.0-11.0)
[2017-11-23 05:11] LABS: CALCIUM 8.5 mg/dL (8.5-10.1); CREATININE 2.5 mg/dL (0.7-1.3); POTASSIUM 3.8 mmol/L (3.5-5.1); TROPONIN-I 0.08 ng/mL (<0.06)
[2017-11-23 05:19] LABS: BE(vivo) -1.2 mmol/L (-2 to +3); HCO3 20.9 mmol/L (22.0-26.0); PO2 371.7 mmHg (80.0-100.0); pH 7.506 (7.360-7.450); sO2 99.8 % (92.0-98.0)
[2017-11-23 05:54] LABS: ABSOLUTE NEUTROPHILS 14.4 thou/uL (1.4-8.2)
[2017-11-23 17:22] LABS: BE(vivo) -0.7 mmol/L (-2 to +3); HCO3 24.3 mmol/L (22.0-26.0); PCO2 41.2 mmHg (35.0-45.0); PO2 83.2 mmHg (80.0-100.0); pH 7.388 (7.360-7.450); sO2 96.1 % (92.0-98.0)
[2017-11-24] VITALS (53 sets, daily range): BP systolic 80–111; BP diastolic 52–71
[2017-11-24 01:04] LABS: ABSOLUTE NEUTROPHILS 11.6 thou/uL (1.4-8.2); BASOPHILS 0.2 % (0.0-2.0); EOSINOPHILS 0.3 % (0.0-3.0); HEMOGLOBIN 8.5 gm/dL (14.0-18.0); LYMPHOCYTES 3.5 % (24.0-44.0); MCH 30.8 pg (26.0-34.0); MCHC 35.2 g/dL (28.0-37.0); MCV 87.5 fL (80.0-100.0); MONOCYTES 5.5 % (1.0-8.0); POLYS 90.5 % (36.0-66.0); RBC 2.74 mil/uL (4.50-6.00); RDW 13.3 % (10.5-14.5); WBC 12.8 thou/uL (4.0-11.0)
[2017-11-24 01:06] LABS: PLATELET COUNT 57 thou/uL (150-400)
[2017-11-24 01:20] LABS: ALBUMIN 1.9 g/dL (3.4-5.0); CALCIUM 8.1 mg/dL (8.5-10.1); CREATININE 3.3 mg/dL (0.7-1.3); MAGNESIUM 2.1 mg/dL (1.8-2.4); PHOSPHORUS 1.7 mg/dL (2.5-4.9); POTASSIUM 3.5 mmol/L (3.5-5.1); TOTAL BILIRUBIN 1.6 mg/dL (<0.1-1.0); TOTAL PROTEIN 5.7 g/dL (6.4-8.2)
[2017-11-25] VITALS (38 sets, daily range): BP systolic 97–130; BP diastolic 57–103
[2017-11-25 04:57] LABS: ABSOLUTE NEUTROPHILS 7.8 thou/uL (1.4-8.2); BASOPHILS 0.4 % (0.0-2.0); EOSINOPHILS 0.8 % (0.0-3.0); HEMATOCRIT 24.2 % (42.0-52.0); HEMOGLOBIN 8.6 gm/dL (14.0-18.0); MCH 30.9 pg (26.0-34.0); MCHC 35.4 g/dL (28.0-37.0); MCV 87.5 fL (80.0-100.0); PLATELET COUNT 69 thou/uL (150-400); POLYS 84.8 % (36.0-66.0); RBC 2.76 mil/uL (4.50-6.00); RDW 13.9 % (10.5-14.5); WBC 9.2 thou/uL (4.0-11.0)
[2017-11-25 05:04] LABS: ALBUMIN 1.7 g/dL (3.4-5.0); CALCIUM 7.4 mg/dL (8.5-10.1); CREATININE 4.3 mg/dL (0.7-1.3); PHOSPHORUS 3.1 mg/dL (2.5-4.9); POTASSIUM 3.6 mmol/L (3.5-5.1)
[2017-11-25 05:38] LABS: BE(vivo) 1.5 mmol/L (-2 to +3); HCO3 24.6 mmol/L (22.0-26.0); PCO2 32.6 mmHg (35.0-45.0); PO2 64.2 mmHg (80.0-100.0); pH 7.495 (7.360-7.450); sO2 94.3 % (92.0-98.0)
[2017-11-25 11:55] LABS: BE(vivo) 1.7 mmol/L (-2 to +3); HCO3 25.1 mmol/L (22.0-26.0); PCO2 34.5 mmHg (35.0-45.0); PO2 79.5 mmHg (80.0-100.0); pH 7.479 (7.360-7.450); sO2 96.6 % (92.0-98.0)
[2017-11-26] VITALS (25 sets, daily range): BP systolic 122–149; BP diastolic 61–81
[2017-11-26 03:58] LABS: ABSOLUTE NEUTROPHILS 6.5 thou/uL (1.4-8.2); BASOPHILS 0.5 % (0.0-2.0); EOSINOPHILS 1.8 % (0.0-3.0); HEMATOCRIT 24.6 % (42.0-52.0); HEMOGLOBIN 8.6 gm/dL (14.0-18.0); MCH 30.6 pg (26.0-34.0); MCHC 34.9 g/dL (28.0-37.0); MCV 87.6 fL (80.0-100.0); MONOCYTES 6.8 % (1.0-8.0); PLATELET COUNT 90 thou/uL (150-400); POLYS 84.9 % (36.0-66.0); RBC 2.81 mil/uL (4.50-6.00); RDW 13.8 % (10.5-14.5); WBC 7.7 thou/uL (4.0-11.0)
[2017-11-26 04:19] LABS: ALBUMIN 1.7 g/dL (3.4-5.0); CALCIUM 7.8 mg/dL (8.5-10.1); CREATININE 4.6 mg/dL (0.7-1.3); PHOSPHORUS 3.7 mg/dL (2.5-4.9); POTASSIUM 3.5 mmol/L (3.5-5.1)
[2017-11-26 05:16] LABS: BE(vivo) 2.5 mmol/L (-2 to +3); HCO3 25.9 mmol/L (22.0-26.0); PCO2 35.2 mmHg (35.0-45.0); PO2 83.9 mmHg (80.0-100.0); pH 7.484 (7.360-7.450)
[2017-11-26 09:03] LABS: BE(vivo) 3.7 mmol/L (-2 to +3); HCO3 27.1 mmol/L (22.0-26.0); PCO2 36.4 mmHg (35.0-45.0); PO2 79.9 mmHg (80.0-100.0); sO2 96.6 % (92.0-98.0)
[2017-11-27] VITALS (24 sets, daily range): BP systolic 106–158; BP diastolic 66–93
[2017-11-27 04:33] LABS: CALCIUM 7.9 mg/dL (8.5-10.1); CREATININE 4.4 mg/dL (0.7-1.3); POTASSIUM 3.3 mmol/L (3.5-5.1)
[2017-11-27 04:37] LABS: ALBUMIN 1.7 g/dL (3.4-5.0); CALCIUM 7.5 mg/dL (8.5-10.1); CREATININE 4.3 mg/dL (0.7-1.3); PHOSPHORUS 4.5 mg/dL (2.5-4.9); POTASSIUM 3.4 mmol/L (3.5-5.1)
[2017-11-27 08:22] LABS: HEMATOCRIT 27.3 % (42.0-52.0); HEMOGLOBIN 9.5 gm/dL (14.0-18.0); MCH 30.6 pg (26.0-34.0); MCHC 34.6 g/dL (28.0-37.0); MCV 88.4 fL (80.0-100.0); RBC 3.09 mil/uL (4.50-6.00); WBC 7.7 thou/uL (4.0-11.0)
[2017-11-27 12:05] LABS: BE(vivo) 3.8 mmol/L (-2 to +3); HCO3 27.3 mmol/L (22.0-26.0); PCO2 37.2 mmHg (35.0-45.0); PO2 71.5 mmHg (80.0-100.0); pH 7.484 (7.360-7.450); sO2 95.5 % (92.0-98.0)
[2017-11-28] VITALS (26 sets, daily range): BP systolic 139–169; BP diastolic 70–84
[2017-11-28 05:57] LABS: HEMOGLOBIN 9.3 gm/dL (14.0-18.0); MCH 30.2 pg (26.0-34.0); MCHC 34.2 g/dL (28.0-37.0); MCV 88.2 fL (80.0-100.0); RBC 3.07 mil/uL (4.50-6.00); RDW 14.2 % (10.5-14.5); WBC 9.1 thou/uL (4.0-11.0)
[2017-11-28 06:02] LABS: ALBUMIN 1.8 g/dL (3.4-5.0); CALCIUM 7.9 mg/dL (8.5-10.1); CREATININE 3.8 mg/dL (0.7-1.3); PHOSPHORUS 4.2 mg/dL (2.5-4.9); POTASSIUM 3.6 mmol/L (3.5-5.1)
[2017-11-29] VITALS (19 sets, daily range): BP systolic 136–175; BP diastolic 71–112
[2017-11-29 05:16] LABS: HEMATOCRIT 26.8 % (42.0-52.0); HEMOGLOBIN 9.2 gm/dL (14.0-18.0); MCH 30.3 pg (26.0-34.0); MCHC 34.3 g/dL (28.0-37.0); MCV 88.3 fL (80.0-100.0); PLATELET COUNT 164 thou/uL (150-400); RBC 3.03 mil/uL (4.50-6.00); RDW 14.3 % (10.5-14.5); WBC 10.2 thou/uL (4.0-11.0)
[2017-11-29 05:26] LABS: ALBUMIN 1.9 g/dL (3.4-5.0); CALCIUM 8.2 mg/dL (8.5-10.1); CREATININE 3.5 mg/dL (0.7-1.3); PHOSPHORUS 4.4 mg/dL (2.5-4.9); POTASSIUM 3.6 mmol/L (3.5-5.1)
[2017-11-29 05:32] LABS: ABSOLUTE NEUTROPHILS 8.8 thou/uL (1.4-8.2)
[2017-11-29 08:35] LABS: PROTIME 10.2 Seconds (9.3-11.4)
[2017-11-30 03:50] VITALS: BP 147/67
[2017-11-30 05:25] LABS: ALBUMIN 1.8 g/dL (3.4-5.0); CALCIUM 8.1 mg/dL (8.5-10.1); CREATININE 3.1 mg/dL (0.7-1.3); PHOSPHORUS 4.4 mg/dL (2.5-4.9); POTASSIUM 3.6 mmol/L (3.5-5.1)
[2017-11-30 07:15] VITALS: BP 136/47
[2017-11-30 11:15] VITALS: BP 136/81
[2017-11-30 15:10] VITALS: BP 144/75
[2017-11-30 19:25] VITALS: BP 121/65
[2017-12-01 03:13] VITALS: BP 135/66
[2017-12-01 06:12] LABS: ALBUMIN 1.8 g/dL (3.4-5.0); CALCIUM 7.9 mg/dL (8.5-10.1); CREATININE 2.8 mg/dL (0.7-1.3); PHOSPHORUS 3.9 mg/dL (2.5-4.9); POTASSIUM 3.3 mmol/L (3.5-5.1)
[2017-12-01 07:12] VITALS: BP 144/81
[2017-12-01 16:50] VITALS: BP 177/97
[2017-12-01 20:45] VITALS: BP 134/67
[2017-12-02] VITALS (13 sets, daily range): BP systolic 125–164; BP diastolic 71–89
[2017-12-02 06:10] LABS: ABSOLUTE NEUTROPHILS 6.3 thou/uL (1.4-8.2); BASOPHILS 0.4 % (0.0-2.0); EOSINOPHILS 1.8 % (0.0-3.0); HEMATOCRIT 24.2 % (42.0-52.0); HEMOGLOBIN 8.3 gm/dL (14.0-18.0); LYMPHOCYTES 13.1 % (24.0-44.0); MCH 30.9 pg (26.0-34.0); MCHC 34.5 g/dL (28.0-37.0); MCV 89.7 fL (80.0-100.0); MONOCYTES 7.1 % (1.0-8.0); PLATELET COUNT 197 thou/uL (150-400); POLYS 77.6 % (36.0-66.0); RBC 2.69 mil/uL (4.50-6.00); RDW 13.6 % (10.5-14.5); WBC 8.1 thou/uL (4.0-11.0)
[2017-12-02 06:23] LABS: ALBUMIN 1.9 g/dL (3.4-5.0); CALCIUM 7.9 mg/dL (8.5-10.1); CREATININE 2.4 mg/dL (0.7-1.3); PHOSPHORUS 3.7 mg/dL (2.5-4.9); POTASSIUM 3.3 mmol/L (3.5-5.1)
[2017-12-02 11:55] LABS: BE(vivo) 3.8 mmol/L (-2 to +3); HCO3 26.7 mmol/L (22.0-26.0); PCO2 33.7 mmHg (35.0-45.0); pH 7.516 (7.360-7.450); sO2 85.3 % (92.0-98.0)
[2017-12-02 11:57] LABS: PO2 44.3 mmHg (80.0-100.0)
[2017-12-02 12:30] LABS: ABSOLUTE NEUTROPHILS 7.2 thou/uL (1.4-8.2); BASOPHILS 0.3 % (0.0-2.0); EOSINOPHILS 1.4 % (0.0-3.0); HEMATOCRIT 25.4 % (42.0-52.0); HEMOGLOBIN 8.7 gm/dL (14.0-18.0); LYMPHOCYTES 8.1 % (24.0-44.0); MCH 30.9 pg (26.0-34.0); MCHC 34.3 g/dL (28.0-37.0); PLATELET COUNT 227 thou/uL (150-400); POLYS 83.2 % (36.0-66.0); RBC 2.82 mil/uL (4.50-6.00); RDW 13.9 % (10.5-14.5); WBC 8.6 thou/uL (4.0-11.0)
[2017-12-03] VITALS (19 sets, daily range): BP systolic 130–166; BP diastolic 68–88
[2017-12-03 04:23] LABS: BASOPHILS 0.8 % (0.0-2.0); EOSINOPHILS 1.4 % (0.0-3.0); HEMATOCRIT 25.4 % (42.0-52.0); HEMOGLOBIN 8.8 gm/dL (14.0-18.0); LYMPHOCYTES 9.8 % (24.0-44.0); MCH 30.8 pg (26.0-34.0); MCHC 34.8 g/dL (28.0-37.0); MCV 88.4 fL (80.0-100.0); MONOCYTES 6.8 % (1.0-8.0); PLATELET COUNT 230 thou/uL (150-400); POLYS 81.2 % (36.0-66.0); RBC 2.87 mil/uL (4.50-6.00); RDW 13.5 % (10.5-14.5); WBC 8.6 thou/uL (4.0-11.0)
[2017-12-03 04:38] LABS: ANION GAP 9 mmol/L (7-16); BUN 42 mg/dL (7-18); CALCIUM 8.2 mg/dL (8.5-10.1); CHLORIDE 105 mmol/L (98-107); CO2 27 mmol/L (21-32); CREATININE 2.5 mg/dL (0.7-1.3); GLUCOSE 226 mg/dL (74-106); PHOSPHORUS 3.8 mg/dL (2.5-4.9); POTASSIUM 3.8 mmol/L (3.5-5.1); SGOT 21 U/L (15-37); SGPT 23 U/L (30-65); SODIUM 141 mmol/L (136-145); TOTAL PROTEIN 6.6 g/dL (6.4-8.2); TROPONIN-I < 0.04 ng/mL (<0.06)
[2017-12-03 05:28] LABS: BE(vivo) 2.3 mmol/L (-2 to +3); HCO3 25.2 mmol/L (22.0-26.0); PCO2 32.7 mmHg (35.0-45.0); PO2 77.2 mmHg (80.0-100.0); pH 7.505 (7.360-7.450); sO2 96.5 % (92.0-98.0)
[2017-12-04 00:03] VITALS: BP 128/74
[2017-12-04 03:55] VITALS: BP 148/73
[2017-12-04 04:02] LABS: ALBUMIN 2.1 g/dL (3.4-5.0); CALCIUM 8.4 mg/dL (8.5-10.1); CREATININE 2.3 mg/dL (0.7-1.3); PHOSPHORUS 3.6 mg/dL (2.5-4.9); POTASSIUM 3.8 mmol/L (3.5-5.1)
[2017-12-04 07:25] VITALS: BP 157/84
[2017-12-04 12:00] VITALS: BP 139/78
[2017-12-04 16:20] VITALS: BP 151/80
[2017-12-04 19:42] VITALS: BP 142/67
[2017-12-05 00:06] VITALS: BP 145/78
[2017-12-05 04:27] LABS: ALBUMIN 2.1 g/dL (3.4-5.0); CALCIUM 8.5 mg/dL (8.5-10.1); CREATININE 2.4 mg/dL (0.7-1.3); PHOSPHORUS 3.6 mg/dL (2.5-4.9)
[2017-12-05 04:39] VITALS: BP 141/87
[2017-12-05 08:38] VITALS: BP 142/79
[2017-12-05 12:44] VITALS: BP 134/67
[2017-12-05 16:35] VITALS: BP 138/81
[2017-12-05 20:38] VITALS: BP 129/67
[2017-12-06 04:24] LABS: ALBUMIN 2.1 g/dL (3.4-5.0); CALCIUM 8.5 mg/dL (8.5-10.1); CREATININE 2.3 mg/dL (0.7-1.3); PHOSPHORUS 3.9 mg/dL (2.5-4.9); POTASSIUM 4.4 mmol/L (3.5-5.1)
[2017-12-06 07:15] VITALS: BP 128/71
[2017-12-06] MEDS ORDERED: WELCHOL 625 MG625 MG PO (16:28)
[2017-12-06] MEDS ORDERED: HEPARIN SO5000 UNIT/ SUBQ (16:28)
[2017-12-06] MEDS ORDERED: CIPRO250 M1 PO (16:28)
[2017-12-06] MEDS ORDERED: LANTUS100 UNIT/M SUBQ (16:28)
[2017-12-06] MEDS ORDERED: METOPROLOL SUCC50 MG PO (16:28)
[2017-12-06] MEDS ORDERED: NOVOLOG100 UNIT/1 SUBQ (16:28)
== END 2017-12-06 19:00 | DRG 870 ==
LOC: ER 08:55 → ICU 11:05 → EROBS 11:05 → 3W 11:05 → 4W 11:46 → ICU 20:32 → 3W 11-29 14:17 → ICU 12-02 14:18 → 2N 12-03 13:21 → ICU 12-03 13:34 → 2N 12-03 13:50 → SICU 12-05 21:59
PROVIDERS: Hospitalist; Internal Medicine Nephrology; Internal Medicine Pulmonary Disease; Nurse Practitioner; Nurse Practitioner Acute Care; Physician Assistant; Specialist
DX: A41.50 Gram-negative sepsis, unspecified (principal); R65.21 Severe sepsis with septic shock; J96.01 Acute respiratory failure with hypoxia; J18.9 Pneumonia, unspecified organism; E43 Unspecified severe protein-calorie malnutrition; G93.40 Encephalopathy, unspecified; K72.00 Acute and subacute hepatic failure without coma; K92.2 Gastrointestinal hemorrhage, unspecified; N12 Tubulo-interstitial nephritis, not specified as acute or chronic; N17.9 Acute kidney failure, unspecified; N13.2 Hydronephrosis with renal and ureteral calculous obstruction; D62 Acute posthemorrhagic anemia; E87.1 Hypo-osmolality and hyponatremia; G72.81 Critical illness myopathy; K52.1 Toxic gastroenteritis and colitis; J98.11 Atelectasis; K80.20 Calculus of gallbladder without cholecystitis without obstruction; D69.6 Thrombocytopenia, unspecified; E87.6 Hypokalemia; R26.9 Unspecified abnormalities of gait and mobility; E11.42 Type 2 diabetes mellitus with diabetic polyneuropathy; T36.95XA Adverse effect of unspecified systemic antibiotic, initial encounter; I11.0 Hypertensive heart disease with heart failure; I50.9 Heart failure, unspecified; B96.89 Other specified bacterial agents as the cause of diseases classified elsewhere; Z68.27 Body mass index [BMI] 27.0-27.9, adult; Z98.42 Cataract extraction status, left eye; Z98.41 Cataract extraction status, right eye; Y92.89 Other specified places as the place of occurrence of the external cause
CPT/HCPCS: 10078; 10081; 10879; 15002; 27000

== ENCOUNTER 2017-12-06 12:53 | Inpatient (IN) | payer OTHER ==
[~2017-12-06] VITALS: Ht 175.3 cm; Wt 84.9 kg
--- NOTE | ~2017-12-06 | PLAN ---
[facility] [address] [place] [address] REHAB UNIT PLAN OF CARE Name: TY OWENS Room #: 516-1 ADM IN M.R.#: [id number] Admission: 12/06/17 Attend Phys: Doyle Kidd MD Discharge: Date of : 53 Report #: [id number] THIS REPORT FOR: //name// CC: Doyle Kidd [facility] unknown DATE OF SERVICE: 12/09/2017 PROGRESS NOTE/OVERALL PLAN OF CARE SUBJECTIVE: The patient is in no distress. Temperature 37, pulse 80, respirations 18, blood pressure 132/60. No focal calf swelling. He has the right nephrostomy drain in place. He is working in therapies with transfers are max assist. He did ambulate 8 feet mod assist in the parallel bars. In occupational therapy, lower body dressing is dependent. In speech therapy, he has mild comprehensive deficits. He has moderate cognitive deficits and jjyzohfe-yc-fluaff memory deficits. ASSESSMENT: 1. Critical illness myopathy. 2. Possible encephalopathy. 3. Premorbid peripheral neuropathy. 4. Gait instability. 5. Medical complexity with generalized debilitation. 6. Sepsis. 7. Shock liver. 8. Status post cardiac arrest. 9. 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 10. Acute respiratory failure that has improved/resolved. 11. Acute renal insufficiency. Creatinine is down to 2.0. PLAN: The overall plan of care is based on the preadmission screen, post-admission physician evaluation and information garnered from therapy assessments. 1. Estimated length of stay is probably several weeks pending progress. 2. Medical prognosis is reasonably good. 3. Anticipated interventions includes the interdisciplinary acute inpatient rehabilitation program. 4. Anticipated functional outcomes would be for the patient to be modified independent with transfers, mobility and ADLs that he can return back to the home setting. 5. Discharge destination would be back to the home setting where he lives in a duplex with a friend. 6. Expected therapy by discipline includes PT, OT and speech 1 hour per day [address] [address] REHAB UNIT PLAN OF CARE Name: TY OWENS Room #: 516-1 ADM IN M.R.#: [id number] Admission: 12/06/17 Attend Phys: Doyle Kidd MD Discharge: Date of : 53 Report #: [id number] each 5 days a week throughout the duration of the acute inpatient rehabilitation stay. <ELECTRONICALLY SIGNED> By: Doyle Kidd MD 12/13/17 1440 0913 2254 Doyle Kidd MD /[facility]
--- NOTE | ~2017-12-06 | H ---
[facility] [address] [place] [address] HISTORY AND PHYSICAL Name: TY OWENS Room #: 516-1 ADM IN M.R.#: [id number] Admission: 12/06/17 Attend Phys: Doyle Kidd MD Discharge: Date of : 53 Report #: [id number] THIS REPORT FOR: //name// CC: Doyle SADLER unknown DATE OF SERVICE: 12/06/2017 HISTORY AND PHYSICAL/POSTADMISSION PHYSICIAN EVALUATION HISTORY OF PRESENT ILLNESS: A 62-year-old white male originally admitted to [facility] on 11/22/2017, with complaints of weakness, congestive cough, dry heaves. He was diagnosed with sepsis and sustained a code blue that night, intubated and transferred to the ICU. He had respiratory failure, was noted to have a right emphysematous pyelonephritis with ureteral obstruction due to stones and bacteremia. He had a right nephrostomy drain placed. He also had a GI bleed that resolved and a right lower lobe pneumonia that improved. He had acute blood loss anemia, stabilized, acute renal failure and antibiotic-associated diarrhea. He was noted to have considerable weakness and was treated for sepsis, shock liver. He was diagnosed with a critical illness myopathy with his considerable weakness and also was thought to have possible encephalopathy. He has now been admitted for acute in-hospital inpatient rehabilitation. PAST MEDICAL HISTORY: Includes diabetes mellitus type 2, hypertension, hyperlipidemia, peripheral neuropathy, cataracts, right hand surgery, and appendectomy. PAST SURGICAL HISTORY: As noted above. ALLERGIES: No known drug allergies. MEDICATIONS: Please see the full medication listing. This includes the vitamins, herbals, and supplements. HABITS: Nonsmoker, past history of ETOH usage. SOCIAL HISTORY: Lives in a duplex with a friend, 13 entry stairs, 5 inside, was premorbidly independent with ADLs, has a cane as needed. x 2, adult daughter, although they are not in contact. REVIEW OF SYSTEMS: No current complaints of chest pain, shortness of breath or abdominal discomfort. PHYSICAL EXAMINATION: GENERAL: A 62-year-old white male in no obvious distress. [facility] [address] [place] [address] HISTORY AND PHYSICAL Name: TY OWENS Room #: 516-1 ADM IN M.R.#: [id number] Admission: 12/06/17 Attend Phys: Doyle Kidd MD Discharge: Date of : 53 Report #: [id number] VITAL SIGNS: Last recorded temperature 97.4, pulse 94, respirations 19, and blood pressure 136/64. He is alert, somewhat tangential, decreased attention and will follow basic 1 step commands. HEAD, EYES, EARS, NOSE, AND THROAT: Facies appeared symmetric. He is on nasal prong O2, 2 liters. CHEST: Some decreased breath sounds, diffuse. CARDIOVASCULAR: Sounded regular rate and rhythm. ABDOMEN: Bowel sounds positive, nontender. He does have the right nephrostomy tube with the drain in place. He has an indwelling Borrego catheter. GENITOURINARY AND RECTAL: Otherwise deferred. EXTREMITIES: Strength, he is only a grade 4- proximal upper extremities, 4 to 4- distally in his lower extremities. Appears to have bilateral foot drop with weakness, ankle dorsiflexion probably a grade 3+. Strength of the lower extremities is a grade 3+ proximal and 3+ distal. He needs blocking of the knees with attempted transfers. He is at a lower functional level with sit to stand, max assist. He needs mod assist for bed mobility. ASSESSMENT: A 62-year-old white male with the following problem list: 1. Critical illness myopathy. 2. Possible encephalopathy. 3. Premorbid peripheral neuropathy. 4. Gait instability. 5. Medical complexity with generalized debilitation. 6. Sepsis. 7. Shock liver. 8. Status post cardiac arrest. 9. 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 10. Acute respiratory failure that has improved, resolved. 11. Acute renal failure. His creatinine is improved to 2.2. PLAN: The patient is admitted for acute in-hospital inpatient rehabilitation. From a postadmission physician evaluation perspective, there are no relevant changes since the preadmission screening. Please see the above review of prior and current medical and functional conditions and comorbidities. Please see the patient's previous and current functional status. As far as risk of complications, the patient has multiple medical comorbidities as noted above. Prognosis is reasonably good with estimated length of stay probably at least 3-4 weeks, potentially longer if warranted. Potential barriers would include his multiple medical comorbidities and decreased functional status. The patient meets diagnostic criteria for an acute in-hospital inpatient rehabilitation stay. He meets medical necessity criteria and we will have the advertising sales consultant physicians continue to follow. He does have the tolerance for therapies and has appropriate discharge goals back to the home setting. [address] [address] HISTORY AND PHYSICAL Name: TY OWENS Room #: 516-1 ADM IN M.R.#: [id number] Admission: 12/06/17 Attend Phys: Doyle Kidd MD Discharge: Date of : 53 Report #: [id number] ADDENDUM: Overall plan of care is based on the preadmission screen, post-admission physician evaluation and information garnered from therapy assessments. 1. Estimated length of stay is probably 3 to 4 weeks as noted above. 2. Medical prognosis is reasonably good. 3. Anticipated interventions includes the interdisciplinary acute inpatient rehabilitation program. 4. Anticipated functional outcomes would be for the patient to become modified independent at least at the wheelchair level and potentially utilizing the walker depending upon how he does for mobility and ADLs. Also to improve cognition. 5. Discharge destination would be back home with his friend in a duplex. 6. Expected therapy by discipline includes PT and OT and speech 1 hour per day each five days a week throughout the duration of the acute inpatient rehabilitation stay. ADDENDUM Discussion with Dr. Maldonado from Urology. The plan is to contact his office a few days prior to the patient being discharged so that the right nephrostomy procedure can be completed including internalizing the stent prior to discharge through Interventional Radiology. The plan then would be for the patient to follow up as an outpatient regarding the stones. We will be in contact with Dr. Maldonado's office prior to discharge, so that this can be arranged through Interventional Radiology. <ELECTRONICALLY SIGNED> By: Doyle Kidd MD 12/07/17 1216 0821 0907 Doyle Kidd MD /[facility]
--- NOTE | ~2017-12-06 | H ---
[facility] [address] [place] [address] HISTORY AND PHYSICAL Name: TY OWENS Room #: 516-1 ADM IN M.R.#: [id number] Admission: 12/06/17 Attend Phys: Doyle Kidd MD Discharge: Date of : 53 Report #: [id number] THIS REPORT FOR: //name// CC: Doyle Kidd [facility] unknown DATE OF SERVICE: 12/06/2017 ADDENDUM TO DICTATION #[id number] Discussion with Dr. Maldonado from Urology. The plan is to contact his office a few days prior to the patient being discharged so that the right nephrostomy procedure can be completed including internalizing the stent prior to discharge through Interventional Radiology. The plan then would be for the patient to follow up as an outpatient regarding the stones. We will be in contact with Dr. Maldonado's office prior to discharge, so that this can be arranged through Interventional Radiology. <ELECTRONICALLY SIGNED> By: Doyle Kidd MD 12/07/17 1216 0843 0903 Doyle Kidd MD /nt
--- NOTE | ~2017-12-06 | HC ---
[facility] [address] [place] [address] CONSULTATION Name: TY OWENS Room #: 516-1 ADM IN M.R.#: [id number] Admission: 12/06/17 Attend Phys: Doyle Kidd MD Discharge: Date of : 53 Report #: [id number] THIS REPORT FOR: //name// CC: Doyle Kidd [facility] unknown DATE OF SERVICE: 12/10/2017 NEUROBEHAVIORAL STATUS EXAMINATION ATTENDING PHYSICIAN: Doyle Kidd M.D. DIRECTOR GRAPHICS: Rodríguez Grajeda, PhD CLINICAL PRESENTATION: The patient is a 62-year-old male admitted to [facility] for comprehensive inpatient rehabilitation program to improve functional mobility, activities of daily living and self-care and mental status secondary to deficits from critical illness myopathy. Diagnoses include a possible encephalopathy, premorbid peripheral neuropathy, gait instability, medical complexity and general debility, sepsis, shock liver, status post cardiac arrest, right emphysematous pyelonephritis with ureteral obstruction due to a kidney stone and bacteremia, status post nephrostomy tube, acute renal insufficiency and acute renal failure. A complete description of his medical condition and history can be found in his medical record. Neuropsychological consultation was requested to provide assistance in the assessment of cognitive and emotional status and to provide recommendations and services. Prior to this most recent admission, he reports living at home with a roommate. He has one daughter from whom he is estranged. 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 The patient states that he retired about 1 year ago because of medical concerns. He is a high school graduate. The patient describes himself as a loner and is uncomfortable around others. He has never maintained an active social support network and prefers more isolation. TECHNIQUES UTILIZED: Clinical interview, review of medical records, staff consultation and behavioral observation, mini mental status exam 2 standard version and clock drawing. EXAMINATION FINDINGS: The patient was alert and cooperative with the assessment. There is no evidence of aphasia. He does not report auditory or visual hallucinations. The patient describes symptoms to include diminished appetite and sleep. He does not report anxiety or depression, but does indicate a desire to be left alone. His premorbid history of social isolation and diminished contact from others may present a mild degree of tension when interacting during his physical rehabilitation program. He does not report [address] [address] CONSULTATION Name: TY OWENS Room #: 516-1 ADM IN .R.#: [id number] Admission: 12/06/17 Attend Phys: Doyle Kidd MD Discharge: Date of : 53 Report #: [id number] difficulty with memory or word finding. Performance on the MMSE 2 brief version is within normal limits with a raw score of 14-16. He was 3/3 for initial registration, 5/5 for orientation to time, 4/[address] and 2/3 for immediate recall of 3 items after a brief time delay and distraction. Performance on the MMSE 2 standard version suggested a mild impairment with a raw score of 23/30 and a T-score 32, which is at the fourth percentile. He was 1/5 for serial sevens, 2/2 for naming, 1/1 for repetition. He was 3/3 for comprehension, 1/1 for reading and 1/1 for being able to write a sentence. The patient had difficulty with copying a simple geographic design. The patient was able to accurately set the hands of a clock at a designated time; however, upper extremity dexterity suggests diminished visual spatial construction. DIAGNOSTIC IMPRESSION: Neurocognitive disorder, unspecified, without behavior disorder - extent to be determine likely mild to moderate RECOMMENDATIONS: The patient will benefit from assistance in compensation for areas of increased impairment; however, he describes discomfort with social interaction. If necessary, allowing him the opportunity for alone time may improve his cooperation. Decreased insight into his deficits in cognition are likely. The patient does recognize his inability to return to independent living at this time; however, he is hoping to obtain increased independence as soon as possible. His current presentation is likely consistent with longstanding variability in personality and behavior. Thank you very much for allowing me to provide the consultation on this patient. <ELECTRONICALLY SIGNED> By: Rodríguez Grajeda, PhD 12/12/17 1840 1355 05 Rodríguez Grajeda, PhD /nt
[2017-12-06] MEDS ORDERED: NOVOLOG100 UNIT/1 SUBQ (16:28)
[2017-12-06] MEDS ORDERED: LANTUS100 UNIT/M SUBQ (16:28)
[2017-12-06] MEDS ORDERED: HEPARIN SO5000 UNIT/ SUBQ (16:28)
[2017-12-06] MEDS ORDERED: WELCHOL 625 MG625 MG PO (16:28)
[2017-12-06] MEDS ORDERED: CIPRO250 M1 PO (16:28)
[2017-12-06] MEDS ORDERED: METOPROLOL SUCC50 MG PO (16:28)
[2017-12-06 19:26] VITALS: BP 136/64
[2017-12-07 05:16] LABS: CALCIUM 8.4 mg/dL (8.5-10.1); CREATININE 2.2 mg/dL (0.7-1.3); POTASSIUM 4.2 mmol/L (3.5-5.1)
[2017-12-07 05:26] LABS: HEMATOCRIT 25.9 % (42.0-52.0); HEMOGLOBIN 8.9 gm/dL (14.0-18.0); MCH 30.6 pg (26.0-34.0); MCHC 34.3 g/dL (28.0-37.0); MCV 89.1 fL (80.0-100.0); RBC 2.91 mil/uL (4.50-6.00); RDW 13.3 % (10.5-14.5); WBC 7.5 thou/uL (4.0-11.0)
[2017-12-07 08:00] VITALS: BP 143/67
[2017-12-07 21:30] VITALS: BP 148/74
[2017-12-08 07:40] VITALS: BP 123/57
[2017-12-08 20:59] VITALS: BP 119/69
[2017-12-09 06:11] LABS: ALBUMIN 2.3 g/dL (3.4-5.0); CALCIUM 8.8 mg/dL (8.5-10.1); PHOSPHORUS 3.8 mg/dL (2.5-4.9)
[2017-12-09 20:06] VITALS: BP 135/67
[2017-12-10 08:12] VITALS: BP 106/61
[2017-12-10 21:03] VITALS: BP 131/67
[2017-12-11 06:30] LABS: ALBUMIN 2.3 g/dL (3.4-5.0); CALCIUM 8.8 mg/dL (8.5-10.1); CREATININE 1.9 mg/dL (0.7-1.3); PHOSPHORUS 4.1 mg/dL (2.5-4.9); POTASSIUM 4.4 mmol/L (3.5-5.1)
[2017-12-11 07:35] VITALS: BP 112/70
[2017-12-11 19:41] VITALS: BP 136/71
[2017-12-12 06:50] LABS: ABSOLUTE NEUTROPHILS 4.8 thou/uL (1.4-8.2); BASOPHILS 0.4 % (0.0-2.0); EOSINOPHILS 3.1 % (0.0-3.0); HEMATOCRIT 27.2 % (42.0-52.0); HEMOGLOBIN 9.2 gm/dL (14.0-18.0); LYMPHOCYTES 24.3 % (24.0-44.0); MCH 29.7 pg (26.0-34.0); MCHC 33.7 g/dL (28.0-37.0); MCV 87.9 fL (80.0-100.0); MONOCYTES 9.8 % (1.0-8.0); PLATELET COUNT 364 thou/uL (150-400); POLYS 62.4 % (36.0-66.0); RBC 3.09 mil/uL (4.50-6.00); RDW 12.9 % (10.5-14.5); WBC 7.7 thou/uL (4.0-11.0)
[2017-12-12 06:51] LABS: CALCIUM 8.7 mg/dL (8.5-10.1); CREATININE 1.9 mg/dL (0.7-1.3); POTASSIUM 4.6 mmol/L (3.5-5.1)
[2017-12-12 08:03] VITALS: BP 106/56
[2017-12-12 20:21] VITALS: BP 120/76
[2017-12-13 04:36] LABS: CALCIUM 8.5 mg/dL (8.5-10.1); CREATININE 1.9 mg/dL (0.7-1.3); POTASSIUM 4.6 mmol/L (3.5-5.1)
[2017-12-13 07:15] VITALS: BP 112/67
[2017-12-13 20:05] VITALS: BP 118/63
[2017-12-14 08:00] VITALS: BP 111/68
[2017-12-14 18:10] VITALS: BP 141/80
[2017-12-14 18:22] VITALS: BP 141/80
[2017-12-14 19:18] VITALS: BP 142/73
[2017-12-14 19:25] VITALS: BP 142/73
[2017-12-15 08:00] VITALS: BP 111/69
[2017-12-15 19:55] VITALS: BP 126/74
[2017-12-16 04:40] LABS: ABSOLUTE NEUTROPHILS 6.2 thou/uL (1.4-8.2); BASOPHILS 1.1 % (0.0-2.0); EOSINOPHILS 3.6 % (0.0-3.0); HEMATOCRIT 25.5 % (42.0-52.0); HEMOGLOBIN 8.8 gm/dL (14.0-18.0); LYMPHOCYTES 21.8 % (24.0-44.0); MCH 30.1 pg (26.0-34.0); MCHC 34.5 g/dL (28.0-37.0); MCV 87.2 fL (80.0-100.0); MONOCYTES 9.5 % (1.0-8.0); PLATELET COUNT 354 thou/uL (150-400); RBC 2.93 mil/uL (4.50-6.00); RDW 12.7 % (10.5-14.5); WBC 9.7 thou/uL (4.0-11.0)
[2017-12-16 04:49] LABS: CALCIUM 8.6 mg/dL (8.5-10.1); CREATININE 1.8 mg/dL (0.7-1.3); POTASSIUM 4.4 mmol/L (3.5-5.1)
[2017-12-16 08:11] VITALS: BP 127/62
[2017-12-16 13:09] LABS: ALBUMIN 2.8 g/dL (3.4-5.0); DIRECT BILIRUBIN 0.3 mg/dL (<0.1-0.3); TOTAL BILIRUBIN 0.6 mg/dL (<0.1-1.0); TOTAL PROTEIN 7.9 g/dL (6.4-8.2)
[2017-12-16 20:28] VITALS: BP 135/65
[2017-12-17 07:24] VITALS: BP 108/67
[2017-12-17 19:56] VITALS: BP 135/80
[2017-12-18 05:00] LABS: HEMATOCRIT 24.4 % (42.0-52.0); HEMOGLOBIN 8.6 gm/dL (14.0-18.0); MCH 30.2 pg (26.0-34.0); MCHC 35.1 g/dL (28.0-37.0); MCV 85.9 fL (80.0-100.0); RBC 2.84 mil/uL (4.50-6.00); RDW 13.2 % (10.5-14.5); WBC 10.2 thou/uL (4.0-11.0)
[2017-12-18 05:12] LABS: ALBUMIN 2.7 g/dL (3.4-5.0); CALCIUM 8.7 mg/dL (8.5-10.1); CREATININE 1.7 mg/dL (0.7-1.3); PHOSPHORUS 3.7 mg/dL (2.5-4.9); POTASSIUM 4.6 mmol/L (3.5-5.1)
[2017-12-18 06:15] LABS: PROTIME 10.3 Seconds (9.3-11.4)
[2017-12-18 09:07] VITALS: BP 133/70
[2017-12-18 20:08] VITALS: BP 134/68
[2017-12-19 08:05] VITALS: BP 120/72
[2017-12-19 19:04] VITALS: BP 113/64
[2017-12-20 06:36] LABS: HEMATOCRIT 24.5 % (42.0-52.0); HEMOGLOBIN 8.4 gm/dL (14.0-18.0); MCH 29.2 pg (26.0-34.0); MCHC 34.1 g/dL (28.0-37.0); MCV 85.5 fL (80.0-100.0); RBC 2.87 mil/uL (4.50-6.00); RDW 13.5 % (10.5-14.5); WBC 11.3 thou/uL (4.0-11.0)
[2017-12-20 07:05] LABS: ALBUMIN 2.8 g/dL (3.4-5.0); CALCIUM 9.2 mg/dL (8.5-10.1); CREATININE 1.7 mg/dL (0.7-1.3); PHOSPHORUS 3.8 mg/dL (2.5-4.9); POTASSIUM 4.9 mmol/L (3.5-5.1)
[2017-12-20 08:00] VITALS: BP 143/74
[2017-12-20 10:30] VITALS: BP 137/73
[2017-12-20 11:00] VITALS: BP 125/62
[2017-12-20 12:00] VITALS: BP 120/61
[2017-12-20 12:50] VITALS: BP 133/64
[2017-12-20 20:25] VITALS: BP 107/67
[2017-12-21 03:55] LABS: ABSOLUTE NEUTROPHILS 6.4 thou/uL (1.4-8.2); BASOPHILS 0.6 % (0.0-2.0); EOSINOPHILS 3.2 % (0.0-3.0); HEMATOCRIT 25.2 % (42.0-52.0); HEMOGLOBIN 8.7 gm/dL (14.0-18.0); LYMPHOCYTES 24.1 % (24.0-44.0); MCH 29.8 pg (26.0-34.0); MCHC 34.4 g/dL (28.0-37.0); MCV 86.6 fL (80.0-100.0); MONOCYTES 9.2 % (1.0-8.0); PLATELET COUNT 303 thou/uL (150-400); POLYS 62.9 % (36.0-66.0); RBC 2.91 mil/uL (4.50-6.00); RDW 13.5 % (10.5-14.5); WBC 10.2 thou/uL (4.0-11.0)
[2017-12-21 04:03] LABS: CREATININE 1.9 mg/dL (0.7-1.3); POTASSIUM 4.7 mmol/L (3.5-5.1)
[2017-12-21 07:30] VITALS: BP 136/83
[2017-12-21 19:25] VITALS: BP 133/70
[2017-12-22 03:05] LABS: ALBUMIN 2.9 g/dL (3.4-5.0); CREATININE 1.9 mg/dL (0.7-1.3); PHOSPHORUS 4.5 mg/dL (2.5-4.9); POTASSIUM 4.5 mmol/L (3.5-5.1)
[2017-12-22 07:50] VITALS: BP 108/63
[2017-12-22 20:07] VITALS: BP 122/80
[2017-12-23 07:15] VITALS: BP 130/76
[2017-12-23 19:50] VITALS: BP 116/71
[2017-12-24 03:10] LABS: ALBUMIN 2.8 g/dL (3.4-5.0); CALCIUM 8.7 mg/dL (8.5-10.1); CREATININE 1.7 mg/dL (0.7-1.3); PHOSPHORUS 4.4 mg/dL (2.5-4.9); POTASSIUM 4.4 mmol/L (3.5-5.1)
[2017-12-24 08:25] VITALS: BP 109/57
[2017-12-24 20:18] VITALS: BP 127/64
[2017-12-25 07:30] VITALS: BP 106/61
[2017-12-25 19:50] VITALS: BP 115/67
[2017-12-25 21:05] VITALS: BP 115/67
[2017-12-26 06:24] LABS: ABSOLUTE NEUTROPHILS 6.6 thou/uL (1.4-8.2); BASOPHILS 0.4 % (0.0-2.0); EOSINOPHILS 6.6 % (0.0-3.0); HEMATOCRIT 22.5 % (42.0-52.0); HEMOGLOBIN 7.6 gm/dL (14.0-18.0); LYMPHOCYTES 22.6 % (24.0-44.0); MCH 29.3 pg (26.0-34.0); MCHC 33.7 g/dL (28.0-37.0); MONOCYTES 6.9 % (1.0-8.0); PLATELET COUNT 228 thou/uL (150-400); POLYS 63.5 % (36.0-66.0); RBC 2.59 mil/uL (4.50-6.00); RDW 14.2 % (10.5-14.5); WBC 10.4 thou/uL (4.0-11.0)
[2017-12-26 06:40] LABS: ALBUMIN 2.8 g/dL (3.4-5.0); CREATININE 1.8 mg/dL (0.7-1.3); POTASSIUM 4.5 mmol/L (3.5-5.1)
[2017-12-26 07:50] VITALS: BP 125/69
[2017-12-26 10:42] LABS: % SATURATION 16 % (20-39); IRON 31 ug/dL (65-175); TIBC 196 ug/dL (250-450)
[2017-12-26 19:27] VITALS: BP 135/68
[2017-12-26 19:50] VITALS: BP 138/82
[2017-12-27 07:00] VITALS: BP 136/81
[2017-12-27 19:04] VITALS: BP 132/82
[2017-12-28 07:30] VITALS: BP 134/81
[2017-12-28 18:58] VITALS: BP 121/68
[2017-12-28 20:00] VITALS: BP 121/68
[2017-12-29 06:48] LABS: ALBUMIN 2.9 g/dL (3.4-5.0); CALCIUM 8.8 mg/dL (8.5-10.1); CREATININE 1.7 mg/dL (0.7-1.3); PHOSPHORUS 4.2 mg/dL (2.5-4.9); POTASSIUM 4.4 mmol/L (3.5-5.1)
[2017-12-29 07:35] VITALS: BP 122/75
[2017-12-29 21:01] VITALS: BP 117/67
[2017-12-30 07:55] VITALS: BP 114/59
[2017-12-30 20:13] VITALS: BP 124/75
[2017-12-31 07:15] VITALS: BP 142/85
[2017-12-31 20:52] VITALS: BP 129/77
[2018-01-01 04:43] LABS: HEMATOCRIT 23.8 % (42.0-52.0); MCH 29.8 pg (26.0-34.0); MCHC 33.8 g/dL (28.0-37.0); MCV 88.1 fL (80.0-100.0); RBC 2.7 mil/uL (4.50-6.00); RDW 14.9 % (10.5-14.5); WBC 9.6 thou/uL (4.0-11.0)
[2018-01-01 04:57] LABS: ALBUMIN 2.8 g/dL (3.4-5.0); CREATININE 1.7 mg/dL (0.7-1.3); POTASSIUM 4.7 mmol/L (3.5-5.1); TOTAL BILIRUBIN 0.4 mg/dL (<0.1-1.0); TOTAL PROTEIN 8.1 g/dL (6.4-8.2)
[2018-01-01 07:15] VITALS: BP 136/79
[2018-01-01 19:28] VITALS: BP 140/78
[2018-01-02 05:51] LABS: ABSOLUTE NEUTROPHILS 5.8 thou/uL (1.4-8.2); BASOPHILS 0.8 % (0.0-2.0); EOSINOPHILS 10.6 % (0.0-3.0); HEMATOCRIT 24.3 % (42.0-52.0); HEMOGLOBIN 8.4 gm/dL (14.0-18.0); LYMPHOCYTES 20.7 % (24.0-44.0); MCH 30.3 pg (26.0-34.0); MCHC 34.5 g/dL (28.0-37.0); MCV 87.7 fL (80.0-100.0); MONOCYTES 7.6 % (1.0-8.0); PLATELET COUNT 252 thou/uL (150-400); POLYS 60.3 % (36.0-66.0); RBC 2.77 mil/uL (4.50-6.00); RDW 15.2 % (10.5-14.5); WBC 9.6 thou/uL (4.0-11.0)
[2018-01-02 06:00] LABS: CALCIUM 8.7 mg/dL (8.5-10.1); CREATININE 1.8 mg/dL (0.7-1.3); MAGNESIUM 1.8 mg/dL (1.8-2.4); POTASSIUM 4.6 mmol/L (3.5-5.1)
[2018-01-02 10:30] VITALS: BP 135/83
[2018-01-02 19:39] VITALS: BP 141/81
[2018-01-03 07:15] VITALS: BP 138/80
[2018-01-03 19:35] VITALS: BP 130/71
[2018-01-04 02:33] VITALS: BP 130/71
[2018-01-04 05:26] LABS: ABSOLUTE NEUTROPHILS 4.6 thou/uL (1.4-8.2); BASOPHILS 0.4 % (0.0-2.0); EOSINOPHILS 15.2 % (0.0-3.0); HEMATOCRIT 22.8 % (42.0-52.0); HEMOGLOBIN 7.8 gm/dL (14.0-18.0); LYMPHOCYTES 25.1 % (24.0-44.0); MCH 30.1 pg (26.0-34.0); MCHC 34.2 g/dL (28.0-37.0); MCV 88.1 fL (80.0-100.0); MONOCYTES 8.3 % (1.0-8.0); PLATELET COUNT 228 thou/uL (150-400); RBC 2.59 mil/uL (4.50-6.00); RDW 15.4 % (10.5-14.5); WBC 9.1 thou/uL (4.0-11.0)
[2018-01-04 05:52] LABS: ALBUMIN 2.7 g/dL (3.4-5.0); CALCIUM 8.6 mg/dL (8.5-10.1); CREATININE 1.8 mg/dL (0.7-1.3); MAGNESIUM 1.8 mg/dL (1.8-2.4); PHOSPHORUS 4.1 mg/dL (2.5-4.9); POTASSIUM 4.3 mmol/L (3.5-5.1)
[2018-01-04 07:55] VITALS: BP 138/77
[2018-01-04 20:00] VITALS: BP 144/78
[2018-01-04 23:01] VITALS: BP 144/78
[2018-01-05 08:00] VITALS: BP 151/90
[2018-01-05 11:38] VITALS: BP 151/90
[2018-01-05 19:45] VITALS: BP 155/88
[2018-01-06 04:45] VITALS: BP 147/85
[2018-01-06 06:11] LABS: CALCIUM 9.5 mg/dL (8.5-10.1); CREATININE 1.8 mg/dL (0.7-1.3); PHOSPHORUS 3.4 mg/dL (2.5-4.9); POTASSIUM 4.4 mmol/L (3.5-5.1)
[2018-01-06 07:15] VITALS: BP 133/73
[2018-01-06 17:32] VITALS: BP 133/73
[2018-01-06 19:53] VITALS: BP 138/87
[2018-01-07 03:23] LABS: ABSOLUTE NEUTROPHILS 4.3 thou/uL (1.4-8.2); BASOPHILS 1.3 % (0.0-2.0); EOSINOPHILS 14.6 % (0.0-3.0); HEMATOCRIT 24.5 % (42.0-52.0); HEMOGLOBIN 8.4 gm/dL (14.0-18.0); LYMPHOCYTES 26.1 % (24.0-44.0); MCH 29.9 pg (26.0-34.0); MCHC 34.3 g/dL (28.0-37.0); MCV 87.2 fL (80.0-100.0); MONOCYTES 8.3 % (1.0-8.0); PLATELET COUNT 280 thou/uL (150-400); POLYS 49.7 % (36.0-66.0); RBC 2.81 mil/uL (4.50-6.00); RDW 14.9 % (10.5-14.5); WBC 8.7 thou/uL (4.0-11.0)
[2018-01-07 03:32] LABS: CALCIUM 9.3 mg/dL (8.5-10.1); CREATININE 1.7 mg/dL (0.7-1.3); MAGNESIUM 1.9 mg/dL (1.8-2.4); POTASSIUM 4.3 mmol/L (3.5-5.1)
[2018-01-07 08:26] VITALS: BP 125/72
[2018-01-07 19:04] VITALS: BP 148/86
[2018-01-08 03:18] LABS: ALBUMIN 3.1 g/dL (3.4-5.0); CALCIUM 9.3 mg/dL (8.5-10.1); CREATININE 1.7 mg/dL (0.7-1.3); PHOSPHORUS 3.2 mg/dL (2.5-4.9); POTASSIUM 4.7 mmol/L (3.5-5.1)
[2018-01-08 07:15] VITALS: BP 147/90
[2018-01-08 19:24] VITALS: BP 136/81
[2018-01-09 06:05] LABS: CREATININE 1.8 mg/dL (0.7-1.3); PHOSPHORUS 3.6 mg/dL (2.5-4.9)
[2018-01-09 07:00] VITALS: BP 134/79
[2018-01-09 19:19] VITALS: BP 141/81
[2018-01-10 07:15] VITALS: BP 142/79
[2018-01-10 19:36] VITALS: BP 133/75
[2018-01-11 04:11] LABS: CALCIUM 8.8 mg/dL (8.5-10.1); CREATININE 1.8 mg/dL (0.7-1.3); MAGNESIUM 2.1 mg/dL (1.8-2.4); POTASSIUM 4.5 mmol/L (3.5-5.1)
[2018-01-11 04:14] LABS: ABSOLUTE NEUTROPHILS 4.4 thou/uL (1.4-8.2); BASOPHILS 0.6 % (0.0-2.0); EOSINOPHILS 14.6 % (0.0-3.0); HEMOGLOBIN 8.2 gm/dL (14.0-18.0); MCH 29.8 pg (26.0-34.0); MCV 87.5 fL (80.0-100.0); MONOCYTES 8.9 % (1.0-8.0); PLATELET COUNT 249 thou/uL (150-400); POLYS 47.9 % (36.0-66.0); RBC 2.74 mil/uL (4.50-6.00); WBC 9.1 thou/uL (4.0-11.0)
[2018-01-11 07:15] VITALS: BP 142/87
[2018-01-11 11:01] VITALS: BP 144/86
[2018-01-11 11:30] VITALS: BP 148/89
[2018-01-11 12:30] VITALS: BP 131/79
[2018-01-11 13:30] VITALS: BP 116/64
[2018-01-11 19:09] VITALS: BP 134/75
[2018-01-12 07:00] VITALS: BP 113/87
[2018-01-12 09:13] LABS: STONE CA OXALATE MONOHYDRATE 75 % (()); STONE CALCIUM PHOSPHATE 25 % (()); STONE COLOR Tan (()); STONE COMMENT Note: (()); STONE WEIGHT 292.1 mg (())
[2018-01-12 20:15] VITALS: BP 153/85
[2018-01-13 06:22] LABS: ABSOLUTE NEUTROPHILS 5.3 thou/uL (1.4-8.2); BASOPHILS 0.6 % (0.0-2.0); EOSINOPHILS 13.5 % (0.0-3.0); HEMATOCRIT 25.6 % (42.0-52.0); HEMOGLOBIN 8.7 gm/dL (14.0-18.0); LYMPHOCYTES 21.6 % (24.0-44.0); MCH 29.8 pg (26.0-34.0); MCHC 34.1 g/dL (28.0-37.0); MCV 87.3 fL (80.0-100.0); MONOCYTES 8.9 % (1.0-8.0); PLATELET COUNT 242 thou/uL (150-400); POLYS 55.4 % (36.0-66.0); RBC 2.93 mil/uL (4.50-6.00); RDW 14.6 % (10.5-14.5); WBC 9.5 thou/uL (4.0-11.0)
[2018-01-13 06:32] LABS: CALCIUM 9.2 mg/dL (8.5-10.1); CREATININE 1.9 mg/dL (0.7-1.3); MAGNESIUM 1.9 mg/dL (1.8-2.4); POTASSIUM 4.4 mmol/L (3.5-5.1)
[2018-01-13 08:00] VITALS: BP 153/90
[2018-01-13] MEDS ORDERED: MIRALAX17 GM PO (09:44)
[2018-01-13] MEDS ORDERED: LANTUS100 UNIT/M SUBQ (09:44)
[2018-01-13] MEDS ORDERED: TYLENOL325 MG PO (09:44)
[2018-01-13] MEDS ORDERED: METOPROLOL SUCC50 MG PO (09:44)
[2018-01-13] MEDS ORDERED: FLOMAX0.4 MG PO (09:44)
[2018-01-13] MEDS ORDERED: GABAPENTIN 100100 MG PO (09:44)
[2018-01-13] MEDS ORDERED: AMLODIPINE BESY10 MG PO (09:44)
[2018-01-13] MEDS ORDERED: NOVOLOG100 UNIT/1 SUBQ (09:44)
[2018-01-13] MEDS ORDERED: COLACE100 MG PO (09:44)
== END 2018-01-13 18:00 | DRG 987 ==
PROVIDERS: Hospitalist; Internal Medicine Nephrology; Nurse Practitioner; Nurse Practitioner Family; Physical Medicine & Rehabilitation
PROC: 0T25X0Z Change Drainage Device in Kidney, External Approach (ICD-10-PCS; principal; 2017-12-20)
PROC: 0TP98DZ Removal of Intraluminal Device from Ureter, Via Natural or Artificial Opening Endoscopic (ICD-10-PCS; 2018-01-02)
PROC: 0T768DZ Dilation of Right Ureter with Intraluminal Device, Via Natural or Artificial Opening Endoscopic (ICD-10-PCS; 2018-01-02)
PROC: 0TC68ZZ Extirpation of Matter from Right Ureter, Via Natural or Artificial Opening Endoscopic (ICD-10-PCS; 2018-01-02)
PROC: 0T9B70Z Drainage of Bladder with Drainage Device, Via Natural or Artificial Opening (ICD-10-PCS; 2018-01-11)
DX: G72.81 Critical illness myopathy (principal); J96.00 Acute respiratory failure, unspecified whether with hypoxia or hypercapnia; K72.00 Acute and subacute hepatic failure without coma; A41.59 Other Gram-negative sepsis; G93.41 Metabolic encephalopathy; N17.9 Acute kidney failure, unspecified; N12 Tubulo-interstitial nephritis, not specified as acute or chronic; D62 Acute posthemorrhagic anemia; I13.0 Hypertensive heart and chronic kidney disease with heart failure and stage 1 through stage 4 chronic kidney disease, or unspecified chronic kidney disease; K52.1 Toxic gastroenteritis and colitis; K92.2 Gastrointestinal hemorrhage, unspecified; N20.2 Calculus of kidney with calculus of ureter; E87.1 Hypo-osmolality and hyponatremia; E78.5 Hyperlipidemia, unspecified; R26.9 Unspecified abnormalities of gait and mobility; R53.81 Other malaise; R13.10 Dysphagia, unspecified; D69.6 Thrombocytopenia, unspecified; H26.9 Unspecified cataract; N18.9 Chronic kidney disease, unspecified; I50.9 Heart failure, unspecified; T36.95XA Adverse effect of unspecified systemic antibiotic, initial encounter; R33.9 Retention of urine, unspecified; N31.9 Neuromuscular dysfunction of bladder, unspecified; N13.9 Obstructive and reflux uropathy, unspecified; W18.39XA Other fall on same level, initial encounter; E10.42 Type 1 diabetes mellitus with diabetic polyneuropathy; E10.22 Type 1 diabetes mellitus with diabetic chronic kidney disease; Z90.49 Acquired absence of other specified parts of digestive tract; Z93.6 Other artificial openings of urinary tract status; Y93.89 Activity, other specified; Y92.89 Other specified places as the place of occurrence of the external cause; Y99.8 Other external cause status; Z79.4 Long term (current) use of insulin
CPT/HCPCS: 10112; 50010; 50101; 50164; 50478; 51767; 53331; 53650; 56815; 62110; 62900; 70005

== ENCOUNTER 2018-06-23 11:46 | Inpatient (IN) | payer OTHER ==
[~2018-06-23] VITALS: Ht 177.8 cm; Wt 95.1 kg
[2018-06-23] VITALS (30 sets, daily range): BP systolic 76–123; BP diastolic 34–60
--- NOTE | ~2018-06-23 | HC ---
[facility] [address] [place] [address] CONSULTATION Name: TY OWENS Room #: 242-P ADM IN M.R.#: [id number] Admission: 06/23/18 Attend Phys: Dl Davis MD Discharge: Date of : 53 Report #: [id number] THIS REPORT FOR: //name// CC: Dl Davis [facility] DATE OF SERVICE: 06/23/2018 REASON FOR CONSULTATION: I was asked to evaluate concerning septic shock. HISTORY OF PRESENT ILLNESS: The patient is a 62-year-old who presents from independent living with generalized fatigue and weakness. He fell and was too weak to get up. Called EMS and on their arrival, blood pressure was in the 80 systolic, blood glucose was 194. There was concern about possible EKG changes to suggest ischemia. Transported to the Emergency Room where his initial blood pressure was 87/47 with a temperature of 91.7. He was unable to give me any further details of his history. He was given several liters of IV fluid in the Emergency Room. Now, he is on bicarbonate drip and Levophed drip. There has been no cough or sputum production. He denies any chest pain. He has had no nausea or vomiting. There has been no diarrhea. He has a suprapubic catheter for neurogenic bladder issues. He has had minimal urine output. There have been no rashes or decubiti noted. He notes no back pain. REVIEW OF SYSTEMS: Ten-point review of systems was otherwise negative or the patient was unable to give me an adequate history for this. ALLERGIES: None. MEDICATIONS: As noted on his MAR including vancomycin and Zosyn that was given in the Emergency Room. PAST MEDICAL HISTORY: Diabetes, peripheral neuropathy, cataracts, hyperlipidemia, hypertension, right hand surgery, appendectomy, had Enterobacter pyelonephritis back in November of this year. He has been seen by Urology. 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 He did undergo ureteroscopy and laser lithotripsy with basket stone extraction and ureteral stent placement in December. FAMILY HISTORY: Noncontributory. SOCIAL HISTORY: Nonsmoker, no significant alcohol intake. PHYSICAL EXAMINATION: GENERAL: He was hypothermic. VITAL SIGNS: Temperature of 91.9, blood pressure 114/51 on Levophed drip at 10 mcg, heart rate was 61, respiratory rate 15 on 2 liters of oxygen per nasal [address] [address] CONSULTATION Name: TY OWENS Room #: 242-P [facility] IN ..#: [id number] Admission: 06/23/18 Attend Phys: Dl Davis MD Discharge: Date of : 53 Report #: [id number] cannula. He had 2+ anasarca. HEENT: Without scleral icterus or conjunctivitis. Mouth was dry. NECK: Supple with no thyromegaly, mass or JVD. LUNGS: Clear anteriorly with crackles heard posterior bases. No consolidation. HEART: Regular, without murmur. ABDOMEN: Mildly distended, did not appear tender and no hepatosplenomegaly or mass appreciated. Could not appreciate any CVA tenderness. MUSCULOSKELETAL: Spine was nontender to percussion. SKIN: Without decubitus. He did have an abrasion to his left knee. No palpable adenopathy. NEUROLOGIC: The patient was difficult to examine. He was not very cooperative. He had overall lethargy, but was awake. He was able to move all extremities. He had increased muscle tone throughout. He had a suprapubic catheter with minimal clear urine in the tubing. LABORATORY STUDIES: Blood cultures are pending. Urine culture is pending. Urinalysis shows many wbc's, rbc's and bacteria. ABG on 2 liters showed pO2 of 99, pCO2 of 24, pH 7.019, lactate 1.8. Sodium 138, potassium 3.8, bicarbonate of 8, creatinine 9.7 down from 11.2 earlier today. In December, his creatinine was 1.9. Alkaline phosphatase 231, ALT 26, AST 24. Hemoglobin 8.7, platelet count of 139,000, white count was 15.4 with 82% segs, 10% lymphs. Chest x-ray shows congestive heart failure changes with interstitial infiltrates. CT scan of the abdomen and pelvis showed gallstones with thickened gallbladder wall and some distention unchanged from his previous study. His right kidney had inflammatory change with thickening and stranding. There are also some changes to the ascending and transverse colon in the region. IMPRESSION: A 62-year-old diabetic with peripheral neuropathy, suprapubic catheter, who presents with septic shock. He has marked acidosis and acute renal failure with a creatinine up to 9.7 and bicarbonate of 8. He has anemia and leukocytosis. I am suspecting urinary tract, most likely source. He does have inflammatory changes around the right kidney. Did not identify any stones that he had had previously extracted. Still possible this could be related to gallbladder or to the right colon in this region, but with a constellation of symptoms, urinary tract would be most likely. He does have some congestive heart failure with both peripheral edema and pulmonary edema. Other comorbidities include his diabetes, hypertension and peripheral neuropathy in addition to the known previous history of obstructive uropathy and pyelo due to Enterobacter in November. RECOMMENDATION: We will continue full ICU support, sepsis protocol with IV fluids and vasopressors as needed. We will use broad antibiotic coverage pending culture results. These will need to be adjusted to his acute renal failure. It is suspected that the acute renal failure may be partially related to his dehydration. Nephrology is following now. Cultures have been obtained [facility] [address] [place] [address] CONSULTATION Name: TY OWENS Room #: 242-P ADM IN M.R.#: [id number] Admission: 06/23/18 Attend Phys: Dl Davis MD Discharge: Date of : 53 Report #: [id number] including urine and blood. We follow with laboratory studies closely. His suprapubic catheter has been exchanged. I have discussed with nursing at the bedside. [place] here is his condition is serious. With his comorbidities, there remains a significant risk of mortality. <ELECTRONICALLY SIGNED> By: Terrence Eason MD 06/24/18 1839 1814 0048 Terrence Eason MD /nt
--- NOTE | ~2018-06-23 | HC ---
[facility] [address] [place] [place] [address] CONSULTATION Name: TY OWENS Room #: 353-P [facility] IN M.R.#: [id number] Admission: 06/23/18 Attend Phys: Dl Davis MD Discharge: 07/04/18 Date of : 53 Report #: [id number] THIS REPORT FOR: //name// CC: Dl Davis [facility] DATE OF SERVICE: 06/30/2018 HISTORY OF PRESENT ILLNESS: The patient is a 62-year-old white male previously known to me with history of diabetes mellitus type 2, neuropathy, prior suprapubic tube placement, had problems with confusion, not feeling well and multiple falls. He was diagnosed with severe sepsis with septic shock, had noted to have acute encephalopathy, renal failure, now on hemodialysis. He has a right kidney lesion that will need to be dealt with at a later date. He also has acute acalculous cholelithiasis on ultrasound and Surgery is following and recommending percutaneous cholecystectomy by Interventional Radiology if he symptomatically warrants it. We are seeing him in rehabilitation medicine consultation. PAST MEDICAL HISTORY: Includes a prior rehabilitation stay for critical illness myopathy. He had right pyelonephritis, had a nephrostomy tube at that time and underwent right ureteroscopy for this. He also underwent suprapubic tube placement. ALLERGIES: No known drug allergies. MEDICATIONS: Please see the full medication listing. HABITS: No history of tobacco abuse, past use of alcohol. SOCIAL HISTORY: Lives in an assisted living [facility] residential care facility. They apparently provide medical management, meals. He premorbidly ambulated with a walker and was able to walk to the dining room. He was no longer utilizing the AFO he had been given previously. REVIEW OF SYSTEMS: Did not offer any current complaints of chest pain, shortness of breath or abdominal discomfort. PHYSICAL EXAMINATION: GENERAL: The patient is a 62-year-old white male in no obvious distress. VITAL SIGNS: Last recorded temperature 98, pulse 85, respirations 18, blood pressure is 174/92. NEUROLOGIC: He is alert. He does have a definite latency to his responses, will follow basic 1 step commands. Question some of his insight into his deficits. Facies are symmetric. He is currently undergoing dialysis. He has a suprapubic tube. [address] [address] CONSULTATION Name: TY OWENS Room #: 353-P [facility] IN M.R.#: [id number] Admission: 06/23/18 Attend Phys: Dl Davis MD Discharge: 07/04/18 Date of : 53 Report #: [id number] EXTREMITIES: Functional range of motion of the upper extremities, strength is a grade 4-/5. Lower extremities, no focal calf swelling, functional range of motion, strength is grade 3+ to 4-/5. DTRs are trace to 1. He has been min assist with sit to stand and has ambulated 180 feet min assist with a front-wheeled walker. Lower extremity dressing, standby assistance. ASSESSMENT: A 62-year-old white male with the following problems: 1. Acute encephalopathy. 2. Severe sepsis. 3. Septic shock. 4. Renal failure, currently on hemodialysis. 5. Past history of right pyelonephritis. 6. Status post suprapubic tube. 7. Acute acalculous cholecystitis on ultrasound. Being monitored by Surgery. May need Interventional Radiology involvement. 8. Diabetes mellitus type 2. 9. Premorbid peripheral neuropathy. PLAN: Therapy is continuing to work with him. He certainly may warrant an acute in-hospital inpatient rehabilitation stay as he further medically stabilizes. We will need to check on insurance issues. We will be glad to follow along with you regarding his rehab therapy needs. <ELECTRONICALLY SIGNED> By: Doyle Kidd MD 07/06/18 1454 1612 1935 Doyle Kidd MD /nt
--- NOTE | ~2018-06-23 | EKG ---
[address] [place] [employer] [place] [address] ELECTROCARDIOGRAM REPORT Name: TY OWENS Room #: 170-12 ADM IN M.R.#: [id number] Admission: 06/23/18 Attend Phys: Dl Davis MD Discharge: Date of : 53 Report #: [id number] THIS REPORT FOR: //name// [facility] ED Test Date: 2018-06-23 Test Time: 11:48:52 Pat Name: TY OWENS Department: Room: 170 Gender: M Mat Sewer: YULISSA : 1955 Requested By: Paola Pace Order Number: [id number] MD: Herberth Ramos Measurements Intervals Mills Rate: 58 P: 3 MS: 202 QRS: -29 QRSD: 140 T: 29 QT: 504 QTc: 496 Interpretive Statements Sinus rhythm Left bundle branch block Compared to ECG 12/03/2017 05:50:21 Left bundle-branch block now present Electronically Signed On 06-23-2018 13:36:25 COUNTY DIRECTOR by Herberth Ramos [email or web address] <ELECTRONICALLY SIGNED> By: Herberth Ramos MD 06/23/18 1336 1148 1148 Herberth Ramos MD /EPI
--- NOTE | ~2018-06-23 | HC ---
[facility] [address] [place] [address] CONSULTATION Name: TY OWENS Room #: 353-P ADM IN M.R.#: [id number] Admission: 06/23/18 Attend Phys: Dl Davis MD Discharge: Date of : 53 Report #: [id number] THIS REPORT FOR: //name// [facility] REASON FOR CONSULTATION: Acute kidney injury. REASON FOR THE PRESENTATION: Weakness and fatigue. HISTORY OF PRESENT ILLNESS: A 62-year-old who resides in an assisted home living. He was brought to the Emergency Room yesterday because of weakness and fatigue. Blood pressure was extremely low. He was hypothermic and meeting all criteria of severe sepsis and septic shock. He is known to have right suprapubic catheter, diabetes mellitus, hypertension. He had an emphysematous pyelonephritis in the past. Upon presentation to the Emergency Room yesterday his creatinine was 11.2. Looking back at his previous medical records, he used to run a baseline creatinine anywhere from 1.7-2 all through 2018. He had been evaluated by the hospitalist, the Infectious Disease team. Was admitted to the Intensive Care Unit where he is being treated as septic shock. Dr. Mosley, my partner in practice, has evaluated the patient back in 11/2017 status post code. At that time, the patient had an acute kidney injury event thought to be due to volume depletion with gram-negative sepsis. He had his suprapubic catheter exchanged back in December. He also had urethral stent placement due to obstruction. This was placed on the right ureter. I had personally evaluated the patient back in December of this year on numerous occasions related to his emphysematous pyelonephritis, nephrostomy tube internalization. He was supposed to have a monthly exchange of his suprapubic catheter, I am not really sure if this has been followed or not since his discharge. PAST MEDICAL HISTORY: Extensive and includes the followin. Neurogenic bladder. 2. Emphysematous pyelonephritis. 3. Hypertension. 4. Diabetes mellitus. 5. Nephropathy. 6. Cataracts. 7. Obstructive uropathy. 8. Gram-negative bacteremia. 9. Status post cardiac arrest. 10. Anemia. 11. Elevated liver enzymes with shock liver. 12. Thrombocytopenia. 13. Post laser lithotripsy. 14. Ureteroscopy. 15. Post ureteral stent placement. [address] [address] CONSULTATION Name: TY OWENS Room #: 353-P [facility] IN M.R.#: [id number] Admission: 06/23/18 Attend Phys: Dl Davis MD Discharge: Date of : 53 Report #: [id number] FAMILY HISTORY: At this point, the patient is not able to provide me with the details of his family history. MEDICATIONS: 1. Metoprolol. 2. Amlodipine. 3. Gabapentin. 4. Glimepiride. REVIEW OF SYSTEMS: The patient is having an acute mental status issues and is not able to provide me with the review of systems. SOCIAL HISTORY: He resides in an assisted living facility. PHYSICAL EXAMINATION: GENERAL: He is disoriented to time, place and person. VITAL SIGNS: Pulse rate is 71, respiratory rate is 14, blood pressure 106/65. HEAD AND NECK: Extremely dry mucous membrane. CHEST: Decreased air entry bilaterally. CARDIOVASCULAR: No rub detected. ABDOMEN: Soft, nontender with a suprapubic catheter. LOWER EXTREMITIES: +1 edema. LABORATORY DATA: Reviewed, pH of 7.15. Lactic acid is 2.08. Chemistry from today revealed a sodium of 135, potassium of 3.5, chloride of 109, carbon dioxide of 9 with anion gap of 22. BUN is 80, creatinine is 10.5. Cultures are still pending. ASSESSMENT, IMPRESSION AND PLAN: 1. Acute kidney injury. 2. Severe metabolic acidosis. 3. Severe sepsis and septic shock. 4. Complicated urogenital history as described above. 5. Diabetes mellitus. 6. Continue with the current hemodynamic support. His acute kidney injury, severe metabolic acidosis is well explained by his current presentation and potential sepsis. He received appropriate hemodynamic support yesterday with a total of 6 liters fluid resuscitation in the Emergency Room with normal saline. He is now maintained on bicarbonate drip for his acidosis plus pressors. Given the mild improvement of his acidosis and the urine output, I will ask Interventional Radiology to place a temporary dialysis catheter for the patient and initiate the patient on temporary dialysis to correct his acidosis. [address] [address] CONSULTATION Name: TY OWENS Room #: 353-P ADM IN M.R.#: [id number] Admission: 06/23/18 Attend Phys: Dl Davis MD Discharge: Date of : 53 Report #: [id number] 7. Continue with antibiotic per the Infectious Disease team. 8. We will continue to follow along. <ELECTRONICALLY SIGNED> By: Neema Nichols MD 06/26/18 0628 0822 1101 Neema Nichols MD /nt
[~2018-06-23 11:46] MED LIST changes: +CIPRO250 M1 PO; +COLACE100 MG PO; +FLOMAX0.4 MG PO; +GABAPENTIN 100100 MG PO; +HEPARIN SO5000 UNIT/ SUBQ; +LANTUS100 UNIT/M SUBQ; +METOPROLOL SUCC50 MG PO; +MIRALAX17 GM PO; +NOVOLOG100 UNIT/1 SUBQ; +TYLENOL325 MG PO; +WELCHOL 625 MG625 MG PO
[2018-06-23 12:13] LABS: ABSOLUTE NEUTROPHILS 6.7 thou/uL (1.4-8.2); BASOPHILS 0.2 % (0.0-2.0); HEMATOCRIT 24.8 % (42.0-52.0); HEMOGLOBIN 8.6 gm/dL (14.0-18.0); LYMPHOCYTES 11.8 % (24.0-44.0); MCHC 34.7 g/dL (28.0-37.0); MONOCYTES 6.3 % (1.0-8.0); PLATELET COUNT 129 thou/uL (150-400); POLYS 78.7 % (36.0-66.0); RBC 2.69 mil/uL (4.50-6.00); RDW 14.2 % (10.5-14.5); WBC 8.6 thou/uL (4.0-11.0)
[2018-06-23 12:27] LABS: ANION GAP 24 mmol/L (7-16); BUN 84 mg/dL (7-18); CALCIUM 7.7 mg/dL (8.5-10.1); CHLORIDE 105 mmol/L (98-107); CREATININE 11.2 mg/dL (0.7-1.3); GLUCOSE 148 mg/dL (74-106); POTASSIUM 3.7 mmol/L (3.5-5.1); SODIUM 136 mmol/L (136-145)
[2018-06-23 12:28] LABS: CO2 7 mmol/L (21-32)
[2018-06-23 12:35] LABS: ALBUMIN 3.6 g/dL (3.4-5.0); DIRECT BILIRUBIN 0.1 mg/dL (<0.1-0.3); SGOT 9 U/L (15-37); SGPT 16 U/L (30-65); TOTAL BILIRUBIN 0.2 mg/dL (<0.1-1.0); TOTAL PROTEIN 7.8 g/dL (6.4-8.2); TROPONIN-I <0.06 ng/mL (<0.06)
[2018-06-23] MEDS ORDERED: COLACE100 MG PO (12:48)
[2018-06-23 13:12] LABS: BE(vivo) -23.5 mmol/L (-2 to +3); HCO3 5.8 mmol/L (22.0-26.0); PCO2 24.1 mmHg (35.0-45.0); PO2 114.7 mmHg (80.0-100.0); pH 7.003 (7.360-7.450); sO2 95.7 % (92.0-98.0)
[2018-06-23 16:11] LABS: ABSOLUTE NEUTROPHILS 12.8 thou/uL (1.4-8.2); BASOPHILS 0.1 % (0.0-2.0); EOSINOPHILS 1.7 % (0.0-3.0); HEMATOCRIT 26.2 % (42.0-52.0); HEMOGLOBIN 8.7 gm/dL (14.0-18.0); LYMPHOCYTES 10.9 % (24.0-44.0); MCHC 33.1 g/dL (28.0-37.0); MCV 93.8 fL (80.0-100.0); MONOCYTES 4.4 % (1.0-8.0); PLATELET COUNT 139 thou/uL (150-400); POLYS 82.9 % (36.0-66.0); WBC 15.4 thou/uL (4.0-11.0)
[2018-06-23 16:22] LABS: POTASSIUM 3.8 mmol/L (3.5-5.1)
[2018-06-23 16:26] LABS: APTT 38.3 Seconds (24.5-32.8); FIBRINOGEN 312.3 mg/dL (210-360); INR 1.1
[2018-06-23 16:28] LABS: ALBUMIN 3.4 g/dL (3.4-5.0); TOTAL BILIRUBIN 0.5 mg/dL (<0.1-1.0); TOTAL PROTEIN 7.1 g/dL (6.4-8.2)
[2018-06-23 16:30] LABS: CREATININE 9.7 mg/dL (0.7-1.3)
[2018-06-23 16:42] LABS: URINE BILIRUBIN NEGATIVE (Negative); URINE BLOOD 3+ (Negative); URINE CLARITY CLEAR; URINE COLOR YELLOW; URINE GLUCOSE-RANDOM* NEGATIVE (Negative); URINE KETONES NEGATIVE (Negative); URINE NITRITE-REFLEX NEGATIVE (Negative); URINE PROTEIN (DIPSTICK) 2+ (Negative); URINE UROBILINOGEN 0.2 E.U./dl (0.2-1.0)
[2018-06-23 16:43] LABS: URINE LEUKOCYTES-REFLEX 3+ (Negative)
[2018-06-23 16:48] LABS: SQUAMOUS 0-3 Few /LPF (0-3)
[2018-06-23 16:49] LABS: CASTS None Seen /LPF (None Seen); CRYSTALS None Seen /LPF (None Seen); URINE WBC-REFLEX >25 Many /HPF (0-5)
[2018-06-23 16:50] LABS: URINE RBC >20 Many /HPF (0-2)
[2018-06-23 17:09] LABS: BE(vivo) -23.3 mmol/L (-2 to +3); HCO3 6.1 mmol/L (22.0-26.0); PO2 99.3 mmHg (80.0-100.0); sO2 94.1 % (92.0-98.0)
[2018-06-23 17:10] LABS: PCO2 24.2 mmHg (35.0-45.0); pH 7.019 (7.360-7.450)
[2018-06-24] VITALS (70 sets, daily range): BP systolic 86–187; BP diastolic 37–143
[2018-06-24 05:24] LABS: HEMATOCRIT 25.1 % (42.0-52.0); HEMOGLOBIN 8.4 gm/dL (14.0-18.0); MCHC 33.6 g/dL (28.0-37.0); MCV 92.2 fL (80.0-100.0); PLATELET COUNT 142 thou/uL (150-400); RBC 2.72 mil/uL (4.50-6.00); RDW 14.4 % (10.5-14.5); WBC 14.6 thou/uL (4.0-11.0)
[2018-06-24 05:33] LABS: CALCIUM 6.9 mg/dL (8.5-10.1); CREATININE 10.5 mg/dL (0.7-1.3); MAGNESIUM 1.7 mg/dL (1.8-2.4); POTASSIUM 3.5 mmol/L (3.5-5.1)
[2018-06-24 06:07] LABS: ABSOLUTE NEUTROPHILS 13.3 thou/uL (1.4-8.2); ANISOCYTOSIS 1+; POLYCHROMASIA OCCASIONAL
[2018-06-24 07:59] LABS: BE(vivo) -19.6 mmol/L (-2 to +3); HCO3 7.3 mmol/L (22.0-26.0); PO2 107.6 mmHg (80.0-100.0); sO2 96.6 % (92.0-98.0)
[2018-06-24 08:01] LABS: PCO2 21.2 mmHg (35.0-45.0); pH 7.157 (7.360-7.450)
[2018-06-24 15:27] LABS: BE(vivo) -8.8 mmol/L (-2 to +3); HCO3 15.3 mmol/L (22.0-26.0); PCO2 26.8 mmHg (35.0-45.0); PO2 75.3 mmHg (80.0-100.0); pH 7.375 (7.360-7.450); sO2 95.1 % (92.0-98.0)
[2018-06-25] VITALS (18 sets, daily range): BP systolic 118–140; BP diastolic 63–78
[2018-06-25 04:48] LABS: HEMATOCRIT 21.3 % (42.0-52.0); HEMOGLOBIN 7.3 gm/dL (14.0-18.0); MCH 30.9 pg (26.0-34.0); MCHC 34.4 g/dL (28.0-37.0); MONOCYTES 0.9 % (1.0-8.0); PLATELET COUNT 108 thou/uL (150-400); POLYS 96.1 % (36.0-66.0); RBC 2.36 mil/uL (4.50-6.00); RDW 13.8 % (10.5-14.5); WBC 7.3 thou/uL (4.0-11.0)
[2018-06-25 04:56] LABS: CALCIUM 6.9 mg/dL (8.5-10.1); PHOSPHORUS 7.6 mg/dL (2.5-4.9)
[2018-06-25 04:57] LABS: CREATININE 8.3 mg/dL (0.7-1.3)
[2018-06-25 21:07] LABS: CALCIUM 7.2 mg/dL (8.5-10.1)
[2018-06-26 04:45] VITALS: BP 130/75
[2018-06-26 06:24] LABS: BASOPHILS 0.1 % (0.0-2.0); HEMATOCRIT 20.1 % (42.0-52.0); LYMPHOCYTES 3.9 % (24.0-44.0); MCHC 34.6 g/dL (28.0-37.0); MCV 89.6 fL (80.0-100.0); MONOCYTES 7.6 % (1.0-8.0); PLATELET COUNT 113 thou/uL (150-400); POLYS 88.4 % (36.0-66.0); RBC 2.25 mil/uL (4.50-6.00); RDW 13.7 % (10.5-14.5); WBC 10.2 thou/uL (4.0-11.0)
[2018-06-26 06:34] LABS: ALBUMIN 3.2 g/dL (3.4-5.0); CREATININE 9.1 mg/dL (0.7-1.3); TOTAL BILIRUBIN 0.3 mg/dL (<0.1-1.0); TOTAL PROTEIN 6.5 g/dL (6.4-8.2)
[2018-06-26 07:31] VITALS: BP 130/73
[2018-06-26 11:25] VITALS: BP 121/64
[2018-06-26 16:02] VITALS: BP 148/77
[2018-06-26 18:06] LABS: HEP B SURFACE Ab(ANTI-HBS Non Reactive (()); HEPATITIS B SURFACE AG Negative (Negative)
[2018-06-26 20:03] VITALS: BP 151/89
[2018-06-27 00:20] VITALS: BP 150/81
[2018-06-27 03:19] VITALS: BP 130/62
[2018-06-27 07:02] VITALS: BP 154/77
[2018-06-27 07:17] LABS: HEMATOCRIT 20.4 % (42.0-52.0); HEMOGLOBIN 7.1 gm/dL (14.0-18.0); MCH 31.2 pg (26.0-34.0); MCV 89.2 fL (80.0-100.0); RBC 2.28 mil/uL (4.50-6.00); RDW 13.8 % (10.5-14.5); WBC 9.4 thou/uL (4.0-11.0)
[2018-06-27 07:38] LABS: CALCIUM 7.6 mg/dL (8.5-10.1); MAGNESIUM 1.7 mg/dL (1.8-2.4); POTASSIUM 3.1 mmol/L (3.5-5.1)
[2018-06-27 11:30] VITALS: BP 135/72
[2018-06-27 15:37] VITALS: BP 119/60
[2018-06-27 19:37] VITALS: BP 131/73
[2018-06-28 05:03] VITALS: BP 130/78
[2018-06-28 05:49] LABS: ALBUMIN 2.8 g/dL (3.4-5.0); CALCIUM 7.7 mg/dL (8.5-10.1); CREATININE 6.9 mg/dL (0.7-1.3); PHOSPHORUS 5.9 mg/dL (2.5-4.9); POTASSIUM 3.6 mmol/L (3.5-5.1)
[2018-06-28 12:54] VITALS: BP 135/75
[2018-06-28 16:16] VITALS: BP 138/73
[2018-06-28 19:30] VITALS: BP 145/79
[2018-06-29 03:15] VITALS: BP 132/70
[2018-06-29 07:36] VITALS: BP 157/86
[2018-06-29 08:29] LABS: CALCIUM 8.3 mg/dL (8.5-10.1); POTASSIUM 4.7 mmol/L (3.5-5.1)
[2018-06-29 08:30] LABS: CREATININE 4.9 mg/dL (0.7-1.3)
[2018-06-29 16:05] VITALS: BP 165/93
[2018-06-29 20:29] VITALS: BP 165/86
[2018-06-30 04:52] VITALS: BP 172/91
[2018-06-30 05:21] LABS: ALBUMIN 2.9 g/dL (3.4-5.0); CALCIUM 8.4 mg/dL (8.5-10.1); PHOSPHORUS 5.1 mg/dL (2.5-4.9); POTASSIUM 5.1 mmol/L (3.5-5.1)
[2018-06-30 05:33] LABS: CREATININE 5.9 mg/dL (0.7-1.3)
[2018-06-30 07:19] VITALS: BP 174/92
[2018-06-30 09:14] LABS: INR 1.1
[2018-06-30 18:44] VITALS: BP 154/78
[2018-06-30 20:10] VITALS: BP 150/85
[2018-07-01 04:00] VITALS: BP 145/77
[2018-07-01 06:52] LABS: ALBUMIN 2.5 g/dL (3.4-5.0); PHOSPHORUS 4.1 mg/dL (2.5-4.9); POTASSIUM 4.3 mmol/L (3.5-5.1)
[2018-07-01 06:58] LABS: CREATININE 4.3 mg/dL (0.7-1.3)
[2018-07-01 08:00] VITALS: BP 154/81
[2018-07-01 11:41] VITALS: BP 160/81
[2018-07-01 19:56] VITALS: BP 171/94
[2018-07-01 23:39] VITALS: BP 171/87
[2018-07-02 04:34] VITALS: BP 158/82
[2018-07-02 11:37] VITALS: BP 179/98
[2018-07-02 15:48] VITALS: BP 165/88
[2018-07-02 20:32] VITALS: BP 186/99
[2018-07-02 23:41] VITALS: BP 180/97
[2018-07-03 04:18] VITALS: BP 166/99
[2018-07-03 05:49] LABS: ABSOLUTE NEUTROPHILS 8.5 thou/uL (1.4-8.2); BASOPHILS 0.2 % (0.0-2.0); EOSINOPHILS 5.3 % (0.0-3.0); HEMATOCRIT 21.3 % (42.0-52.0); HEMOGLOBIN 7.2 gm/dL (14.0-18.0); LYMPHOCYTES 8.3 % (24.0-44.0); MCH 31.1 pg (26.0-34.0); MCV 91.6 fL (80.0-100.0); PLATELET COUNT 137 thou/uL (150-400); POLYS 79.2 % (36.0-66.0); RBC 2.33 mil/uL (4.50-6.00); RDW 13.1 % (10.5-14.5); WBC 10.7 thou/uL (4.0-11.0)
[2018-07-03 05:55] LABS: CALCIUM 8.2 mg/dL (8.5-10.1); CREATININE 6.8 mg/dL (0.7-1.3); POTASSIUM 4.7 mmol/L (3.5-5.1)
[2018-07-03 07:16] VITALS: BP 170/95
[2018-07-03 11:40] VITALS: BP 170/92
[2018-07-03 18:01] VITALS: BP 159/94
[2018-07-03 19:45] VITALS: BP 174/92
[2018-07-04 04:00] VITALS: BP 169/98
[2018-07-04 08:55] VITALS: BP 169/87
[2018-07-04] MEDS ORDERED: MUCINEX600 MG PO (15:48)
[2018-07-04] MEDS ORDERED: CEFDINIR300 MG PO (15:48)
[2018-07-04] MEDS ORDERED: LANTUS100 UNIT/M SUBQ (15:48)
[2018-07-04] MEDS ORDERED: CALTRATE-600 W1 EACH PO (15:48)
[2018-07-04] MEDS ORDERED: HEPARIN SO5000 UNIT/ SUBQ (15:48)
[2018-07-04] MEDS ORDERED: LOPERAMIDE 2 MG2 M1 PO (15:48)
[2018-07-04] MEDS ORDERED: RENVELA800 MG PO (15:48)
[2018-07-04] MEDS ORDERED: IPRAT-ALBUT 0.5-3 ML INH (15:48)
== END 2018-07-04 16:29 | DRG 871 ==
LOC: ER 11:46 → 3W 13:19 → EROBS 13:19 → ICU 15:35 → 3W 06-25 17:04
PROVIDERS: Emergency Medicine; Hospitalist; Internal Medicine; Internal Medicine Infectious Disease; Internal Medicine Nephrology
PROC: 02HV33Z Insertion of Infusion Device into Superior Vena Cava, Percutaneous Approach (ICD-10-PCS; principal; 2018-06-23)
PROC: 5A1D70Z Performance of Urinary Filtration, Intermittent, Less than 6 Hours Per Day (ICD-10-PCS; 2018-06-24)
PROC: 5A1D70Z Performance of Urinary Filtration, Intermittent, Less than 6 Hours Per Day (ICD-10-PCS; 2018-06-26)
PROC: B5181ZA Fluoroscopy of Superior Vena Cava using Low Osmolar Contrast, Guidance (ICD-10-PCS; 2018-06-28)
PROC: 5A1D70Z Performance of Urinary Filtration, Intermittent, Less than 6 Hours Per Day (ICD-10-PCS; 2018-06-28)
PROC: B548ZZA Ultrasonography of Superior Vena Cava, Guidance (ICD-10-PCS; 2018-06-28)
PROC: 02HV33Z Insertion of Infusion Device into Superior Vena Cava, Percutaneous Approach (ICD-10-PCS; 2018-06-28)
PROC: 5A1D70Z Performance of Urinary Filtration, Intermittent, Less than 6 Hours Per Day (ICD-10-PCS; 2018-06-30)
PROC: 02H633Z Insertion of Infusion Device into Right Atrium, Percutaneous Approach (ICD-10-PCS; 2018-06-30)
PROC: B244YZZ Ultrasonography of Right Heart using Other Contrast (ICD-10-PCS; 2018-06-30)
PROC: 0JH63XZ Insertion of Tunneled Vascular Access Device into Chest Subcutaneous Tissue and Fascia, Percutaneous Approach (ICD-10-PCS; 2018-06-30)
PROC: 5A1D70Z Performance of Urinary Filtration, Intermittent, Less than 6 Hours Per Day (ICD-10-PCS; 2018-07-03)
PROC: 5A1D70Z Performance of Urinary Filtration, Intermittent, Less than 6 Hours Per Day (ICD-10-PCS; 2018-07-04)
DX: A41.59 Other Gram-negative sepsis (principal); R65.21 Severe sepsis with septic shock; N17.0 Acute kidney failure with tubular necrosis; G93.41 Metabolic encephalopathy; E87.2 Acidosis; K81.0 Acute cholecystitis; N12 Tubulo-interstitial nephritis, not specified as acute or chronic; K52.1 Toxic gastroenteritis and colitis; D64.9 Anemia, unspecified; I11.0 Hypertensive heart disease with heart failure; J32.9 Chronic sinusitis, unspecified; I50.9 Heart failure, unspecified; N31.9 Neuromuscular dysfunction of bladder, unspecified; E78.5 Hyperlipidemia, unspecified; E87.6 Hypokalemia; E83.39 Other disorders of phosphorus metabolism; E83.51 Hypocalcemia; N28.9 Disorder of kidney and ureter, unspecified; K02.9 Dental caries, unspecified; K04.7 Periapical abscess without sinus; E86.0 Dehydration; E11.42 Type 2 diabetes mellitus with diabetic polyneuropathy; B96.1 Klebsiella pneumoniae [K. pneumoniae] as the cause of diseases classified elsewhere; T36.95XA Adverse effect of unspecified systemic antibiotic, initial encounter; Y92.89 Other specified places as the place of occurrence of the external cause; Z90.49 Acquired absence of other specified parts of digestive tract; Z87.442 Personal history of urinary calculi; Z98.42 Cataract extraction status, left eye; Z98.41 Cataract extraction status, right eye; Z79.4 Long term (current) use of insulin; Z99.2 Dependence on renal dialysis; Z79.899 Other long term (current) drug therapy; Z28.21 Immunization not carried out because of patient refusal
CPT/HCPCS: 10078; 10779; 10879; 32100

== ENCOUNTER 2018-07-04 13:21 | Inpatient (IN) | payer OTHER ==
[~2018-07-04] VITALS: Ht 177.8 cm; Wt 83.3 kg
--- NOTE | ~2018-07-04 | HC ---
[facility] [address] [place] [address] CONSULTATION Name: TY OWENS Room #: 503-P [facility] IN M.R.#: [id number] Admission: 07/04/18 Attend Phys: Doyle Kidd MD Discharge: 07/14/18 Date of : 53 Report #: [id number] THIS REPORT FOR: //name// CC: Doyle Kidd [facility] DATE OF SERVICE: 07/09/2018 NEUROBEHAVIORAL STATUS EXAMINATION ATTENDING PHYSICIAN: Doyle Kidd MD [place] CONSULTANT: Rodríguez Grajeda, PhD CLINICAL PRESENTATION: The patient is a 62-year-old white male admitted to the rehabilitation unit at [facility] for comprehensive inpatient rehabilitation program to improve functional mobility, activities of daily living and mental status secondary to mental status changes. The patient had been in assisted living when he became increasingly confused and eventually was diagnosed with severe sepsis and septic shock. It was determined that he was in renal failure. He has been placed on hemodialysis and mental status has improved. His admission assessment on rehab includes acute encephalopathy, severe sepsis, septic shock, renal failure, past history of right pyelonephritis, status post suprapubic tube, history of acute alkalosis and cholecystitis on ultrasound that is being monitored, diabetes mellitus type 2, premorbid peripheral neuropathy and hypertension. A complete description of his medical condition and history can be found in his medical record. Neuropsychological consultation was requested to provide assistance in the assessment of cognitive and emotional status and to provide recommendations and services. Prior to this most recent admission, the patient was in an assisted living apartment. he was in an apartment shared with a male peer prior to placement in assisted living. The patient is a high school graduate. He is estranged from one daughter. He had been employed in a variety of different jobs with his last employment for [employer] The patient has not worked for several years. TECHNIQUES UTILIZED: Clinical interview, review of medical records, staff consultation and behavioral observation, mini mental status exam 2 standard version and clock drawing. EXAMINATION FINDINGS: The patient was alert and cooperative with the [address] [address] CONSULTATION Name: TY OWENS Room #: 503-P [facility] IN M.R.#: [id number] Admission: 07/04/18 Attend Phys: Doyle Kidd MD Discharge: 07/14/18 Date of : 53 Report #: [id number] assessment. He accurately described events surrounding his hospitalization. He is aware of the issues regarding kidney function. The patient does not present with an aphasia. His thoughts are logical and goal oriented. There is no evidence of thought disorder. He does not report auditory or visual hallucinations. There is no suicidal disclosure. He describes his symptoms to include sleep disturbance, tiredness and fatigue during the day. Endurance is reduced. His sleep-wake cycle has been disrupted as a result of remaining napping during the day and getting to sleep later at night. He does not report difficulty with memory, word finding or attention/concentration. His performance on the MMSE 2 brief version is within normal limits with a raw score of 16/16. Initial registration, orientation to time and place, and immediate recall are all within normal limits. He was 29/30 on the MMSE 2 standard version. Attention/concentration, naming, repetition, auditory comprehension, ability to read and follow single command and writing a sentence was within normal limits. The patient has difficulty with visual spatial construction. Copying a simple geometric design was poor. Additionally, clock drawing, while generally within normal limits, showed poor construction and suggesting an upper extremity apraxia. The patient appears to have had a delirium upon his initial admission. The delirium has resolved. Cognition is much improved. However, subtle deficits in cognition remain and likely associated with perception and visual spatial construction. DIAGNOSTIC IMPRESSION: Mild neurocognitive disorder, unspecified, without behavior disorder. RECOMMENDATIONS: As indicated, the delirium appears to have resolved. Subtle to mild deficits in cognition are suggested. He is comfortable within the assisted living environment and continued placement will be necessary for assistance with medication and nutritional managment. His mood is good. He does not report current anxiety or depression that would require treatment. Thank you very much for allowing me to provide the consultation on this patient. <ELECTRONICALLY SIGNED> By: Rodríguez Grajeda, PhD 07/16/18 1625 1251 1341 Rodríguez Grajeda, PhD /nt
--- NOTE | ~2018-07-04 | PLAN ---
[facility] [address] [place] [address] REHAB UNIT PLAN OF CARE Name: TY OWENS Room #: 503-P ADM IN M.R.#: [id number] Admission: 07/04/18 Attend Phys: Doyle Kidd MD Discharge: Date of : 53 Report #: [id number] THIS REPORT FOR: //name// CC: Doyle Villafanam Akkulugari DATE OF SERVICE: 07/07/2018 PROGRESS NOTE/OVERALL PLAN OF CARE HOSPITAL COURSE: The patient is seen back today in followup. He is in no distress. Last recorded temperature is 98, pulse 74, respirations 18, blood pressure is 172/78. He does complain of frequent loose stools. Note that a C. diff sample is being sent and he is on lactobacillus acidophilus. He has been receiving hemodialysis. He is working in therapies with transfers min assist, gait min assist 12 feet with front-wheeled walker. In occupational therapy, lower body dressing is mod assist, upper body dressing is supervision. He is noted to have mild comprehensive deficits with moderate memory deficits and [id number]-ni-qpwwatto cognitive deficits. ASSESSMENT: 1. Acute encephalopathy. 2. Recent severe sepsis. 3. Septic shock. 4. Renal failure, now on hemodialysis. 5. History of right pyelonephritis. 6. Acute calculous cholecystitis, being managed conservatively. 7. Status post suprapubic catheter. 8. Diabetes mellitus type 2. 9. Premorbid peripheral neuropathy. 10. Urinary tract infection. 11. Diarrhea. Clostridium difficile pending. PLAN: The overall plan of care is based on the pre-admission screen, post-admission physician evaluation, and information garnered from therapy assessments. 1. Estimated length of stay is probably at least 2 weeks to 3 weeks pending progress. 2. Medical prognosis is reasonably good. 3. Anticipated interventions include the interdisciplinary acute inpatient rehabilitation program with PT, OT, speech, rehab nursing assisting regarding medication management, skin care prophylaxis, bowel and bladder issues and nursing education. Case management is involved as well as the consulting physicians. 4. Anticipated functional outcomes would be for the patient to hopefully improve with mobility, gait training, ADLs at a walker level as well as improve [facility] [address] [place] [address] REHAB UNIT PLAN OF CARE Name: TY OWENS Room #: 503-P ADM IN M.R.#: [id number] Admission: 07/04/18 Attend Phys: Doyle Kidd MD Discharge: Date of : 53 Report #: [id number] overall cognition, so he can return back to the home setting. 5. Discharge destination would be back to [facility] where he lives. 6. Expected therapy by discipline includes PT, OT and speech 1 hour per day, each five days a week throughout the duration of the acute inpatient rehabilitation stay. <ELECTRONICALLY SIGNED> By: Doyle Kidd MD 07/13/18 1144 0808 1435 Doyle Kidd MD /aj
--- NOTE | ~2018-07-04 | H ---
[facility] [address] [place] [address] HISTORY AND PHYSICAL Name: TY OWENS Room #: 503-P ADM IN M.R.#: [id number] Admission: 07/04/18 Attend Phys: Doyle Kidd MD Discharge: Date of : 53 Report #: [id number] THIS REPORT FOR: //name// CC: Doyle Harris Akkulugari DATE OF SERVICE: 07/04/2018 HISTORY AND PHYSICAL/POSTADMISSION PHYSICIAN EVALUATION: HISTORY OF PRESENT ILLNESS: The patient is a 62-year-old white male with a prior history of diabetes mellitus type 2, neuropathy, prior suprapubic tube placement and was having problems with confusion and not feeling well and had multiple falls. He was diagnosed with severe sepsis with septic shock, was noted to have acute encephalopathy and renal failure. He has been placed on hemodialysis. He has a right kidney lesion that will need to be dealt with at a later date. He also was noted to have acute acalculous cholelithiasis on ultrasound and Surgery has been following and recommended percutaneous cholecystectomy by Interventional Radiology if he symptomatically were to warrant it. At this point, they have been recommending continued medical management, IV antibiotics as per Infectious Disease. He is noted to have decreased cognition with the acute encephalopathy, although it appears to be improving. He has been treated for the sepsis and has acute renal failure with suspected acute tubular necrosis. He does have premorbid peripheral neuropathy as well. He has not been admitted for acute in-hospital inpatient rehabilitation. PAST MEDICAL HISTORY: Includes a prior rehabilitation stay for critical illness myopathy. He had right pyelonephritis, had a nephrostomy tube at that time and underwent right ureteroscopy for this. He also had a suprapubic tube placed. His past history also includes diabetes, peripheral neuropathy, hyperlipidemia, hypertension. ALLERGIES: No known drug allergies. MEDICATIONS: Please see the full medication listing. This includes vitamins, herbals, and supplements. SOCIAL HISTORY: No history of tobacco usage. There is a past history of some alcohol usage. He has been living in the [facility] residential care facility. They provide medical management and meals. He premorbidly ambulated with a walker and was able to walk to the dining room. REVIEW OF SYSTEMS: No current complaints of chest pain, shortness of breath or abdominal discomfort. [address] [address] HISTORY AND PHYSICAL Name: TY OWENS Room #: 503-P [facility] IN M.R.#: [id number] Admission: 07/04/18 Attend Phys: Doyle Kidd MD Discharge: Date of : 53 Report #: [id number] PHYSICAL EXAMINATION: GENERAL: A 62-year-old white male in no obvious distress. The patient is alert, pleasant. VITAL SIGNS: Last recorded temperature 98.2, pulse 78, respirations 22, blood pressure 161/61. HEENT: Appeared to be benign. Cranial nerves are grossly intact. Facies are symmetric. CHEST: Sounded clear to auscultation. CARDIOVASCULAR: Regular rate and rhythm. ABDOMEN: Bowel sounds positive, nontender. He has the prior suprapubic tube. GENITOURINARY AND RECTAL: Otherwise deferred. EXTREMITIES: Functional range of motion of the upper extremity strength is grade 4-/5. NEUROLOGIC: Lower extremities, no focal calf swelling, functional range of motion, strength is grade 3+ to 4-/5. DTRs are trace to 1. He has been min assist for short distance ambulation. Cognitively, he has a delay in his responses. We will follow basic 1 step commands. Appears to have decreased insight. ASSESSMENT: This is a 62-year-old white male with the following problem list: 1. Acute encephalopathy. 2. Severe sepsis. 3. Septic shock. 4. Renal failure, has been needing hemodialysis. 5. Past history of right pyelonephritis. 6. Status post suprapubic tube. 7. History of acute acalculous cholecystitis on ultrasound that is being monitored conservatively by Surgery. 8. Diabetes mellitus type 2. 9. Premorbid peripheral neuropathy. 10. Hypertension. PLAN: The patient is admitted for acute in-hospital inpatient rehabilitation. From a postadmission physician evaluation perspective, there are no relevant changes since the preadmission screening. Please see the above review of prior and current medical and functional conditions and comorbidities. Please see the patient's previous and current functional status. As far as risk of complications, the patient has multiple medical comorbidities as noted above. Initial plan of care involves the interdisciplinary acute inpatient rehabilitation program with goal of maximizing the patient's functional independence, so he can hopefully return back to his prior living situation. Measurable functional goals would be for him to improve as far as basic transfers, gait training, gait aids with a walker, ADLs as well as improved cognition. Prognosis is reasonably good with estimated length of stay probably at least 2-3 weeks. Potential barriers would include his multiple medical comorbidities and decreased functional status. [facility] [address] [place] [address] HISTORY AND PHYSICAL Name: TY OWENS Room #: 503-P ADM IN M.R.#: [id number] Admission: 07/04/18 Attend Phys: Doyle Kidd MD Discharge: Date of : 53 Report #: [id number] The patient meets diagnostic criteria for an acute in-hospital inpatient rehabilitation stay. He meets the medical necessity criteria and we will have the customer consultant physicians follow with him while he is at rehabilitation. He does have the tolerance for therapies and has appropriate discharge goals back to the home setting. <ELECTRONICALLY SIGNED> By: Doyle Kidd MD 07/13/18 1144 [id number] Doyle Kidd MD /nt
[2018-07-04] MEDS ORDERED: LANTUS100 UNIT/M SUBQ (15:48)
[2018-07-04] MEDS ORDERED: CEFDINIR300 MG PO (15:48)
[2018-07-04] MEDS ORDERED: CALTRATE-600 W1 EACH PO (15:48)
[2018-07-04] MEDS ORDERED: RENVELA800 MG PO (15:48)
[2018-07-04] MEDS ORDERED: IPRAT-ALBUT 0.5-3 ML INH (15:48)
[2018-07-04] MEDS ORDERED: MUCINEX600 MG PO (15:48)
[2018-07-04] MEDS ORDERED: HEPARIN SO5000 UNIT/ SUBQ (15:48)
[2018-07-04] MEDS ORDERED: LOPERAMIDE 2 MG2 M1 PO (15:48)
[2018-07-04 19:05] VITALS: BP 169/89
[2018-07-04 19:09] VITALS: BP 161/61
[2018-07-05 06:33] LABS: HEMATOCRIT 22.6 % (42.0-52.0); HEMOGLOBIN 7.6 gm/dL (14.0-18.0); MCH 31.2 pg (26.0-34.0); MCHC 33.5 g/dL (28.0-37.0); MCV 93.2 fL (80.0-100.0); RBC 2.43 mil/uL (4.50-6.00); RDW 13.4 % (10.5-14.5); WBC 7.4 thou/uL (4.0-11.0)
[2018-07-05 06:49] LABS: CALCIUM 8.4 mg/dL (8.5-10.1); CREATININE 5.8 mg/dL (0.7-1.3); PHOSPHORUS 6.1 mg/dL (2.5-4.9); POTASSIUM 4.6 mmol/L (3.5-5.1)
[2018-07-05 06:55] VITALS: BP 166/84
[2018-07-05 20:04] VITALS: BP 154/79
[2018-07-06 07:15] VITALS: BP 163/88
[2018-07-06 20:23] VITALS: BP 172/78
[2018-07-07 07:35] VITALS: BP 152/83
[2018-07-07 19:43] VITALS: BP 166/87
[2018-07-08 08:00] VITALS: BP 178/94
[2018-07-08 10:29] VITALS: BP 156/78
[2018-07-08 20:00] VITALS: BP 168/88
[2018-07-09 07:30] VITALS: BP 153/78
[2018-07-09 19:53] VITALS: BP 166/83
[2018-07-10 06:40] VITALS: BP 140/66
[2018-07-10 06:40] LABS: ABSOLUTE NEUTROPHILS 4.6 thou/uL (1.4-8.2); BASOPHILS 1.1 % (0.0-2.0); EOSINOPHILS 5.2 % (0.0-3.0); HEMATOCRIT 22.3 % (42.0-52.0); HEMOGLOBIN 7.5 gm/dL (14.0-18.0); LYMPHOCYTES 17.1 % (24.0-44.0); MCH 30.9 pg (26.0-34.0); MCHC 33.8 g/dL (28.0-37.0); MCV 91.3 fL (80.0-100.0); MONOCYTES 8.8 % (1.0-8.0); PLATELET COUNT 171 thou/uL (150-400); POLYS 67.8 % (36.0-66.0); RBC 2.44 mil/uL (4.50-6.00); RDW 13.1 % (10.5-14.5); WBC 6.8 thou/uL (4.0-11.0)
[2018-07-10 06:50] LABS: CALCIUM 8.7 mg/dL (8.5-10.1); CREATININE 5.3 mg/dL (0.7-1.3); MAGNESIUM 1.9 mg/dL (1.8-2.4); POTASSIUM 5.6 mmol/L (3.5-5.1)
[2018-07-10 19:55] VITALS: BP 173/80
[2018-07-11 08:55] VITALS: BP 153/78
[2018-07-11 19:21] VITALS: BP 143/83
[2018-07-12 09:06] VITALS: BP 140/72
[2018-07-12 19:41] VITALS: BP 172/96
[2018-07-13 04:39] LABS: ALBUMIN 3.2 g/dL (3.4-5.0); CALCIUM 8.7 mg/dL (8.5-10.1); CREATININE 5.7 mg/dL (0.7-1.3); PHOSPHORUS 4.5 mg/dL (2.5-4.9)
[2018-07-13 04:40] LABS: POTASSIUM 5.6 mmol/L (3.5-5.1)
[2018-07-13 07:20] VITALS: BP 167/96
[2018-07-13 20:43] VITALS: BP 164/77
[2018-07-14 07:11] VITALS: BP 163/92
[2018-07-14 08:25] VITALS: BP 163/92
[2018-07-14] MEDS ORDERED: LANTUS100 UNIT/M SUBQ (10:00)
[2018-07-14] MEDS ORDERED: MUCINEX600 MG PO ×2 (10:00→10:26)
[2018-07-14] MEDS ORDERED: PREVALITE PACKET4 GM PO ×2 (10:00→10:26)
[2018-07-14] MEDS ORDERED: PROBIOTIC1 EAC1 PO ×2 (10:00→10:27)
[2018-07-14] MEDS ORDERED: NEPHROCAPS SOFT1 CAP PO (10:00)
[2018-07-14] MEDS ORDERED: LOPERAMIDE 2 MG2 M1 PO (10:26)
[2018-07-14] MEDS ORDERED: RENVELA800 MG PO (10:26)
[2018-07-14] MEDS ORDERED: GABAPENTIN 100100 MG PO (10:26)
[2018-07-14] MEDS ORDERED: TESSALON PERLE100 MG PO (10:26)
== END 2018-07-14 14:29 | DRG 70 ==
PROVIDERS: Internal Medicine Nephrology; Nurse Practitioner; Nurse Practitioner Family
PROC: 5A1D70Z Performance of Urinary Filtration, Intermittent, Less than 6 Hours Per Day (ICD-10-PCS; principal; 2018-07-06)
PROC: 5A1D70Z Performance of Urinary Filtration, Intermittent, Less than 6 Hours Per Day (ICD-10-PCS; 2018-07-08)
PROC: 5A1D70Z Performance of Urinary Filtration, Intermittent, Less than 6 Hours Per Day (ICD-10-PCS; 2018-07-11)
PROC: 5A1D70Z Performance of Urinary Filtration, Intermittent, Less than 6 Hours Per Day (ICD-10-PCS; 2018-07-13)
DX: G93.40 Encephalopathy, unspecified (principal); A41.9 Sepsis, unspecified organism; R65.21 Severe sepsis with septic shock; N18.6 End stage renal disease; J96.91 Respiratory failure, unspecified with hypoxia; I12.0 Hypertensive chronic kidney disease with stage 5 chronic kidney disease or end stage renal disease; N39.0 Urinary tract infection, site not specified; E87.2 Acidosis; N17.9 Acute kidney failure, unspecified; K81.0 Acute cholecystitis; K52.1 Toxic gastroenteritis and colitis; T36.95XA Adverse effect of unspecified systemic antibiotic, initial encounter; E87.5 Hyperkalemia; E78.5 Hyperlipidemia, unspecified; G31.84 Mild cognitive impairment of uncertain or unknown etiology; B96.1 Klebsiella pneumoniae [K. pneumoniae] as the cause of diseases classified elsewhere; E11.42 Type 2 diabetes mellitus with diabetic polyneuropathy; I95.9 Hypotension, unspecified; R53.81 Other malaise; J32.9 Chronic sinusitis, unspecified; Z53.29 Procedure and treatment not carried out because of patient's decision for other reasons; K02.9 Dental caries, unspecified; K04.7 Periapical abscess without sinus; E11.22 Type 2 diabetes mellitus with diabetic chronic kidney disease; Z99.2 Dependence on renal dialysis; Z93.50 Unspecified cystostomy status; Y92.89 Other specified places as the place of occurrence of the external cause; Z91.81 History of falling
CPT/HCPCS: 10112; 32100

== ENCOUNTER 2018-10-03 10:12 | Emergency (ER) | payer OTHER ==
[~2018-10-03] VITALS: Ht 177.8 cm; Wt 86.2 kg
[~2018-10-03 10:12] MED LIST changes: +CALTRATE-600 W1 EACH PO; +CEFDINIR300 MG PO; +IPRAT-ALBUT 0.5-3 ML INH; +LOPERAMIDE 2 MG2 M1 PO; +MUCINEX600 MG PO; +NEPHROCAPS SOFT1 CAP PO; +PREVALITE PACKET4 GM PO; +PROBIOTIC1 EAC1 PO; +RENVELA800 MG PO; +TESSALON PERLE100 MG PO
== END 2018-10-03 14:30 ==
LOC: ER 10:12
DX: I46.9 Cardiac arrest, cause unspecified (principal); I10 Essential (primary) hypertension; E78.5 Hyperlipidemia, unspecified; E11.40 Type 2 diabetes mellitus with diabetic neuropathy, unspecified; Z87.440 Personal history of urinary (tract) infections; Z79.4 Long term (current) use of insulin